=== PATIENT | female | born 1955 | race Caucasian/White ===

== ENCOUNTER 2016-10-09 22:14 | Inpatient (IN) | payer OTHER ==
[~2016-10-09] VITALS: Ht 167.6 cm; Wt 90.0 kg
[~2016-10-09 22:14] MED LIST: BUPR300T49; BUPR300T49 PO; CEFD300C37 PO; DIAZ10TA; DULO60CA7 PO; GABA300C10 PO; GABA600T2 PO; GABA800T2; GABA800T2 PO; GLYB5TAB3; HYDR25SU21 PR; HYDR2TAB13 PO; HYDR50CA; HYDR50CA PO; INSU100C5 SQ-INSULIN; INSU100V13 SQ; INSU100V13 SQ-INSULIN; INSU100V8; INSU100V8 SQ; LISI-167 PO; LISI-170; LOPE2CAP PO; META800T21; METO-394 PO; METR500T PO; OMEP-110 PO; ONDA4TAB13 SL; OXYC15TA75 PO; PANT40TA3; PANT40TA5 PO; Polyethylene Glycol 3350 PO; SUCR1TAB26 PO; TEMA30CA6; TIZA4TAB PO; TIZA4TAB9 PO; TRAM50TA2 PO; TRAZ100T15 PO; VANC1VIA3 PO
[2016-10-09] MEDS ORDERED: PANTOPRAZOLE 80 MG in SODIUM CHLORIDE 0.9% 50 ML IVPB ONE (22:21)
[2016-10-09] MEDS ORDERED: MORPHINE SULFATE 4 MG/ML, 1ML ONE ×2 (22:29→23:17)
[2016-10-09] MEDS ORDERED: ONDANSETRON 2MG/ML, 2ML ONE (22:29)
[2016-10-09] MEDS ORDERED: SODIUM CHLORIDE 0.9% 1,000ML IVBOLUS ONE ×2 (22:30→23:30)
[2016-10-09] MEDS ORDERED: ONDANSETRON 2MG/ML, 2ML IVPush ONE (22:30)
[2016-10-09] MEDS ORDERED: SODIUM CHLORIDE FLUSH 10ML SYR IVF ONE (22:30)
[2016-10-09] MEDS: MORPHINE SULFATE 4 MG/ML, 1ML IVPush PRN ×2 (22:37→23:22)
[2016-10-09 22:54] LABS: ASPARTATE AMINO TRANSFERASE 8 U/L (15-37); BLOOD UREA NITROGEN 30 mg/dL (7-18)
[2016-10-09] MEDS: PANTOPRAZOLE 80 MG in SODIUM CHLORIDE 0.9% 100 ML IV SCH (23:06)
[2016-10-09 23:38] LABS: PH, VENOUS 7.165 pH (7.320-7.420)
[2016-10-10] MEDS ORDERED: SODIUM CHLORIDE 0.9% 1,000ML IVBOLUS ONE (00:30)
[2016-10-10] MEDS ORDERED: OMNIPAQUE 350 MG/ML, 100ML BOTTLE ONE (00:36)
[2016-10-10 01:42] LABS: BLOOD UREA NITROGEN 28 mg/dL (7-18)
[2016-10-10] MEDS ORDERED: PIPERACILLIN/TAZO/PMX 3.375GM 50 ML IV ONE (02:00)
[2016-10-10] MEDS ORDERED: METRONIDAZOLE PMX 500MG/100ML 100 ML IV ONE (02:00)
[2016-10-10] MEDS ORDERED: INSULIN REGULAR 100 UNITS/ML, 3ML VIAL SQ-INSULIN ONE (02:00)
[2016-10-10] MEDS ORDERED: INSULIN REGULAR 100 UNITS/ML, 3ML VIAL ONE (02:17)
[2016-10-10] MEDS ORDERED: SODIUM CHLORIDE FLUSH 10ML SYR IVF PRN (02:30)
[2016-10-10 03:30] VITALS: BP 119/84
[2016-10-10] MEDS ORDERED: POLYETHYLENE GLYCOL 17 GM PACKET PO PRN (03:30)
[2016-10-10] MEDS ORDERED: INSULIN DETEMIR 100 UNITS/ML, PEN SQ-INSULIN SCH (03:30)
[2016-10-10] MEDS ORDERED: LABETALOL 5MG/ML, 20ML IV PRN (03:30)
[2016-10-10] MEDS ORDERED: BISACODYL 10 MG SUPP PR PRN (03:30)
[2016-10-10] MEDS ORDERED: ACETAMINOPHEN 325 MG TABLET PO PRN (03:30)
[2016-10-10] MEDS ORDERED: DOCUSATE 100 MG CAPSULE PO PRN (03:30)
[2016-10-10] MEDS: VANCOMYCIN 50 MG/ML ORAL SUSP PO SCH ×4 (03:34→20:48)
[2016-10-10] MEDS: METRONIDAZOLE PMX 500MG/100ML 100 ML IV SCH ×3 (03:34→20:48)
[2016-10-10] MEDS: ENOXAPARIN 40 MG/0.4 ML SQ SCH ×2 (03:35→03:45)
[2016-10-10] MEDS: PANTOPRAZOLE 80 MG in SODIUM CHLORIDE 0.9% 100 ML IV SCH (04:52)
[2016-10-10] MEDS: INSULIN ASPART 100 UNITS/ML, PEN SQ-INSULIN SCH ×5 (04:52→21:53)
[2016-10-10 06:15] LABS: BLOOD UREA NITROGEN 23 mg/dL (7-18)
[2016-10-10 07:35] VITALS: BP 120/74
[2016-10-10] MEDS: OXYcodone IR 5MG TABLET PO PRN ×2 (08:55→16:31)
[2016-10-10] MEDS: DULOXETINE 30 MG CAPSULE.DR PO SCH (08:55)
[2016-10-10] MEDS: GABAPENTIN 300 MG CAPSULE PO SCH ×2 (08:56→20:47)
[2016-10-10] MEDS: BUPROPION SR 150 MG TABLET PO SCH ×2 (12:00→20:47)
[2016-10-10 13:09] VITALS: BP 127/83
[2016-10-10 16:09] LABS: BLOOD UREA NITROGEN 15 mg/dL (7-18)
[2016-10-10] MEDS: SODIUM CHLORIDE 0.9% 1,000 ML IV SCH (16:30)
[2016-10-10] MEDS: INSULIN DETEMIR 100 UNITS/ML, PEN SQ-INSULIN SCH (16:31)
[2016-10-10 19:30] VITALS: BP 123/82
[2016-10-10] MEDS: TIZANIDINE 4MG TABLET PO SCH (20:47)
[2016-10-10] MEDS ORDERED: TRAZODONE 100MG TABLET PO ONE (21:30)
[2016-10-10] MEDS ORDERED: PANTOPROZOLE 40MG TABLET PO ONE (21:30)
[2016-10-10] MEDS ORDERED: ALUMINUM/MAG/SIMETHICONE 30 ML UDC PO PRN (21:30)
[2016-10-11] VITALS (10 sets, daily range): BP systolic 57–86; BP diastolic 31–53
[2016-10-11] MEDS: SODIUM CHLORIDE 0.9% 1,000 ML IV SCH ×2 (00:10→22:49)
[2016-10-11] MEDS ORDERED: SODIUM CHLORIDE 0.9% 1,000 ML IVBOLUS PRN (01:32)
[2016-10-11] MEDS ORDERED: NALOXONE 0.4 MG/ML, 1ML IVPush ONE (02:00)
[2016-10-11] MEDS: METRONIDAZOLE PMX 500MG/100ML 100 ML IV SCH ×3 (03:04→20:20)
[2016-10-11] MEDS: PANTOPRAZOLE 80 MG in SODIUM CHLORIDE 0.9% 100 ML IV SCH ×3 (03:04→22:50)
[2016-10-11] MEDS: VANCOMYCIN 50 MG/ML ORAL SUSP PO SCH ×4 (04:42→20:21)
[2016-10-11] MEDS: INSULIN DETEMIR 100 UNITS/ML, PEN SQ-INSULIN SCH (05:24)
[2016-10-11] MEDS: INSULIN ASPART 100 UNITS/ML, PEN SQ-INSULIN SCH ×4 (07:00→22:50)
[2016-10-11] MEDS ORDERED: SODIUM CHLORIDE 0.9% 1,000ML IVBOLUS ONE (07:45)
[2016-10-11 07:48] LABS: BLOOD UREA NITROGEN 17 mg/dL (7-18)
[2016-10-11 07:53] LABS: TOTAL IRON BINDING CAPACITY 307 mcg/dL (250-450)
[2016-10-11] MEDS: BUPROPION SR 150 MG TABLET PO SCH ×2 (09:00→20:21)
[2016-10-11] MEDS: GABAPENTIN 300 MG CAPSULE PO SCH ×2 (09:00→20:21)
[2016-10-11] MEDS: DULOXETINE 30 MG CAPSULE.DR PO SCH (09:00)
[2016-10-11] MEDS: OXYcodone IR 5MG TABLET PO PRN ×2 (09:26→15:40)
[2016-10-11] MEDS ORDERED: MIDAZOLAM 1 MG/ML, 5ML ONE (10:22)
[2016-10-11] MEDS ORDERED: FENTANYL PF 100 MCG/2ML ONE (10:22)
[2016-10-11] MEDS ORDERED: NALOXONE 1 MG/ML, 2ML ONE (10:44)
[2016-10-11] MEDS ORDERED: INSULIN ASPART 100 UNITS/ML, PEN SQ-INSULIN SCH (11:00)
[2016-10-11] MEDS ORDERED: EPINEPHRINE SYRINGE 0.1 MG/ML, 10ML ONE (11:50)
[2016-10-11] MEDS ORDERED: SODIUM CHLORIDE 0.9% 1,000 ML IV SCH (14:30)
[2016-10-11] MEDS: SUCRALFATE 1 GM/10 ML UDC PO SCH ×2 (15:39→20:20)
[2016-10-11] MEDS: TIZANIDINE 4MG TABLET PO SCH (20:21)
[2016-10-12] MEDS: METRONIDAZOLE PMX 500MG/100ML 100 ML IV SCH (04:03)
[2016-10-12] MEDS: VANCOMYCIN 50 MG/ML ORAL SUSP PO SCH ×2 (04:03→07:41)
[2016-10-12 04:10] VITALS: BP 94/54
[2016-10-12 04:39] LABS: BLOOD UREA NITROGEN 10 mg/dL (7-18)
[2016-10-12] MEDS: INSULIN ASPART 100 UNITS/ML, PEN SQ-INSULIN SCH ×4 (05:11→23:00)
[2016-10-12] MEDS: SODIUM CHLORIDE 0.9% 1,000 ML IV SCH ×2 (05:57→15:38)
[2016-10-12] MEDS: BUPROPION SR 150 MG TABLET PO SCH ×2 (07:40→22:31)
[2016-10-12] MEDS: SUCRALFATE 1 GM/10 ML UDC PO SCH ×3 (07:40→22:31)
[2016-10-12] MEDS: GABAPENTIN 300 MG CAPSULE PO SCH ×2 (07:41→22:30)
[2016-10-12] MEDS: DULOXETINE 30 MG CAPSULE.DR PO SCH (07:41)
[2016-10-12] MEDS: OXYcodone IR 5MG TABLET PO PRN ×3 (07:42→22:30)
[2016-10-12] MEDS ORDERED: FLUCONAZOLE 40 MG/ML ORAL SUSP PO SCH (09:30)
[2016-10-12] MEDS: PANTOPRAZOLE 80 MG in SODIUM CHLORIDE 0.9% 100 ML IV SCH ×2 (09:56→22:31)
[2016-10-12] MEDS ORDERED: FLUCONAZOLE 10 MG/ML ORAL SUSP PO SCH (10:11)
[2016-10-12 14:29] VITALS: BP 138/84
[2016-10-12 20:00] VITALS: BP 134/73
[2016-10-12] MEDS: TIZANIDINE 4MG TABLET PO SCH (22:31)
[2016-10-12] MEDS: TRAZODONE 100MG TABLET PO PRN (23:20)
[2016-10-13 02:00] VITALS: BP 89/53
[2016-10-13] MEDS: SODIUM CHLORIDE 0.9% 1,000 ML IV SCH ×2 (03:39→14:30)
[2016-10-13 04:13] VITALS: BP 102/65
[2016-10-13] MEDS: INSULIN ASPART 100 UNITS/ML, PEN SQ-INSULIN SCH ×4 (05:15→20:44)
[2016-10-13 06:19] LABS: BLOOD UREA NITROGEN 7 mg/dL (7-18)
[2016-10-13 07:42] VITALS: BP 103/69
[2016-10-13] MEDS: OXYcodone IR 5MG TABLET PO PRN ×3 (08:20→20:40)
[2016-10-13] MEDS: BUPROPION SR 150 MG TABLET PO SCH ×2 (08:21→20:43)
[2016-10-13] MEDS: GABAPENTIN 300 MG CAPSULE PO SCH ×2 (08:21→20:42)
[2016-10-13] MEDS: DULOXETINE 30 MG CAPSULE.DR PO SCH (08:21)
[2016-10-13] MEDS ORDERED: FLUCONAZOLE 200 MG TABLET PO SCH ×2 (09:00)
[2016-10-13] MEDS: SUCRALFATE 1 GM TABLET PO SCH ×3 (09:00→20:41)
[2016-10-13] MEDS ORDERED: SUCRALFATE 1 GM TABLET PO SCH (09:00)
[2016-10-13] MEDS: PANTOPRAZOLE 80 MG in SODIUM CHLORIDE 0.9% 100 ML IV SCH ×2 (09:43→21:47)
[2016-10-13 13:48] VITALS: BP 144/75
[2016-10-13 20:00] VITALS: BP 153/78
[2016-10-13] MEDS: TIZANIDINE 4MG TABLET PO SCH (20:43)
[2016-10-13] MEDS: TRAZODONE 100MG TABLET PO PRN (21:46)
[2016-10-14] VITALS (14 sets, daily range): BP systolic 110–174; BP diastolic 71–98
[2016-10-14] MEDS: OXYcodone IR 5MG TABLET PO PRN ×3 (05:11→19:23)
[2016-10-14 05:25] LABS: BLOOD UREA NITROGEN 6 mg/dL (7-18)
[2016-10-14 07:52] LABS: DIFF TOTAL CELLS COUNTED 100 CELL DIFF
[2016-10-14 07:54] LABS: VERIFY COUNTS? YES
[2016-10-14 07:55] LABS: ANISOCYTOSIS 1+; POLYCHROMASIA 1+
[2016-10-14] MEDS: PANTOPRAZOLE 80 MG in SODIUM CHLORIDE 0.9% 100 ML IV SCH ×2 (08:11→19:23)
[2016-10-14] MEDS: BUPROPION SR 150 MG TABLET PO SCH ×2 (08:12→20:21)
[2016-10-14] MEDS: DULOXETINE 30 MG CAPSULE.DR PO SCH (08:12)
[2016-10-14] MEDS: GABAPENTIN 300 MG CAPSULE PO SCH ×2 (08:12→20:20)
[2016-10-14] MEDS: SUCRALFATE 1 GM TABLET PO SCH ×3 (08:12→20:20)
[2016-10-14] MEDS: INSULIN ASPART 100 UNITS/ML, PEN SQ-INSULIN SCH ×4 (08:13→20:20)
[2016-10-14] MEDS ORDERED: POTASSIUM CHLORIDE 20 MEQ TAB.ER.PRT PO ONE (14:30)
[2016-10-14] MEDS ORDERED: MAALOX/HYOSCYAMINE/LIDOCAINE 45 ML BOTTLE PO ONE (16:30)
[2016-10-14] MEDS ORDERED: MAALOX/HYOSCYAMINE/LIDOCAINE 45 ML BOTTLE PO PRN (17:00)
[2016-10-14] MEDS: TRAZODONE 100MG TABLET PO PRN (20:20)
[2016-10-14] MEDS: TIZANIDINE 4MG TABLET PO SCH (20:21)
[2016-10-15 01:48] VITALS: BP 125/80
[2016-10-15] MEDS: OXYcodone IR 5MG TABLET PO PRN ×4 (04:31→23:54)
[2016-10-15] MEDS: PANTOPRAZOLE 80 MG in SODIUM CHLORIDE 0.9% 100 ML IV SCH ×2 (05:05→17:08)
[2016-10-15 05:31] LABS: BLOOD UREA NITROGEN 7 mg/dL (7-18)
[2016-10-15 07:01] VITALS: BP 136/73
[2016-10-15] MEDS: GABAPENTIN 300 MG CAPSULE PO SCH ×2 (08:26→20:10)
[2016-10-15] MEDS: SUCRALFATE 1 GM TABLET PO SCH ×3 (08:26→20:09)
[2016-10-15] MEDS: DULOXETINE 30 MG CAPSULE.DR PO SCH (08:27)
[2016-10-15] MEDS: BUPROPION SR 150 MG TABLET PO SCH ×2 (08:27→20:10)
[2016-10-15] MEDS: INSULIN ASPART 100 UNITS/ML, PEN SQ-INSULIN SCH ×4 (09:56→20:11)
[2016-10-15 13:43] VITALS: BP 163/91
[2016-10-15 18:55] VITALS: BP 165/90
[2016-10-15] MEDS: TIZANIDINE 4MG TABLET PO SCH (20:09)
[2016-10-15] MEDS: TRAZODONE 100MG TABLET PO PRN (20:10)
[2016-10-16 01:38] VITALS: BP 119/76
[2016-10-16] MEDS: PANTOPRAZOLE 80 MG in SODIUM CHLORIDE 0.9% 100 ML IV SCH (03:32)
[2016-10-16 06:05] LABS: BLOOD UREA NITROGEN 8 mg/dL (7-18)
[2016-10-16] MEDS: INSULIN ASPART 100 UNITS/ML, PEN SQ-INSULIN SCH ×7 (07:00→20:29)
[2016-10-16 07:43] VITALS: BP 156/92
[2016-10-16] MEDS ORDERED: PROPOFOL 10 MG/ML, 20ML ONE (08:01)
[2016-10-16] MEDS ORDERED: FENTANYL PF 100 MCG/2ML ONE (08:49)
[2016-10-16] MEDS ORDERED: OXYcodone 5 MG/5 ML ORAL.SOL UDC ONE (08:50)
[2016-10-16] MEDS: FENTANYL PF 100 MCG/2ML IV PRN ×2 (08:51→08:59)
[2016-10-16] MEDS ORDERED: OXYcodone 5 MG/5 ML ORAL.SOL UDC PO PRN (09:00)
[2016-10-16] MEDS: DULOXETINE 30 MG CAPSULE.DR PO SCH (10:11)
[2016-10-16] MEDS: SUCRALFATE 1 GM TABLET PO SCH ×4 (10:11→20:31)
[2016-10-16] MEDS: PANTOPROZOLE 40MG TABLET PO SCH ×2 (10:11→20:30)
[2016-10-16] MEDS: BUPROPION SR 150 MG TABLET PO SCH ×2 (10:11→20:30)
[2016-10-16] MEDS: GABAPENTIN 300 MG CAPSULE PO SCH ×2 (10:11→20:30)
[2016-10-16] MEDS: OXYcodone IR 5MG TABLET PO PRN ×2 (11:09→17:20)
[2016-10-16 13:39] VITALS: BP 165/89
[2016-10-16 18:41] VITALS: BP 157/87
[2016-10-16] MEDS: TIZANIDINE 4MG TABLET PO SCH (20:31)
[2016-10-16] MEDS ORDERED: TRAZODONE 100MG TABLET PO SCH (21:00)
[2016-10-17 00:43] VITALS: BP 107/68
[2016-10-17] MEDS: OXYcodone IR 5MG TABLET PO PRN ×3 (01:19→13:22)
[2016-10-17 06:04] LABS: BLOOD UREA NITROGEN 6 mg/dL (7-18)
[2016-10-17 06:57] VITALS: BP 112/68
[2016-10-17 07:35] VITALS: BP 151/82
[2016-10-17] MEDS: SUCRALFATE 1 GM TABLET PO SCH ×2 (07:36→13:22)
[2016-10-17] MEDS ORDERED: MAGNESIUM SULFATE PMX 2GM/50ML 50 ML IV ONE (08:30)
[2016-10-17] MEDS: PANTOPROZOLE 40MG TABLET PO SCH (09:00)
[2016-10-17] MEDS: GABAPENTIN 300 MG CAPSULE PO SCH (09:03)
[2016-10-17] MEDS: DULOXETINE 30 MG CAPSULE.DR PO SCH (09:03)
[2016-10-17] MEDS: BUPROPION SR 150 MG TABLET PO SCH (09:04)
[2016-10-17] MEDS: INSULIN ASPART 100 UNITS/ML, PEN SQ-INSULIN SCH ×2 (09:05→13:23)
[2016-10-17] MEDS ORDERED: SUCR1TAB26 PO (12:32)
[2016-10-17 14:12] VITALS: BP 149/80
== END 2016-10-17 16:30 | disposition home or self-care (01) | DRG 377 ==
LOC: ED 23:04 → EDIP 10-10 02:02 → 4WST 10-10 03:14 → CCU 10-11 07:04 → 4WST 10-12 14:08
PROVIDERS: ADMIT Internal Medicine
PROC: 30233N1 Transfusion of Nonautologous Red Blood Cells into Peripheral Vein, Percutaneous Approach (ICD-10-PCS; principal; 2016-10-10)
PROC: 0DB98ZX Excision of Duodenum, Via Natural or Artificial Opening Endoscopic, Diagnostic (ICD-10-PCS; 2016-10-11)
PROC: 0DB58ZX Excision of Esophagus, Via Natural or Artificial Opening Endoscopic, Diagnostic (ICD-10-PCS; 2016-10-11)
PROC: 3E0G8GC Introduction of Other Therapeutic Substance into Upper GI, Via Natural or Artificial Opening Endoscopic (ICD-10-PCS; 2016-10-11)
PROC: 0W3P8ZZ Control Bleeding in Gastrointestinal Tract, Via Natural or Artificial Opening Endoscopic (ICD-10-PCS; 2016-10-11)
PROC: 0DB58ZX Excision of Esophagus, Via Natural or Artificial Opening Endoscopic, Diagnostic (ICD-10-PCS; 2016-10-16)
DX: K26.4 Chronic or unspecified duodenal ulcer with hemorrhage (principal); A41.9 Sepsis, unspecified organism; E13.10 Other specified diabetes mellitus with ketoacidosis without coma; F11.20 Opioid dependence, uncomplicated; A04.7 Enterocolitis due to Clostridium difficile; D62 Acute posthemorrhagic anemia; K22.10 Ulcer of esophagus without bleeding; E88.09 Other disorders of plasma-protein metabolism, not elsewhere classified; R19.7 Diarrhea, unspecified; E86.0 Dehydration; E87.6 Hypokalemia; F41.9 Anxiety disorder, unspecified; G47.33 Obstructive sleep apnea (adult) (pediatric); G89.29 Other chronic pain; I10 Essential (primary) hypertension; J44.9 Chronic obstructive pulmonary disease, unspecified; K21.0 Gastro-esophageal reflux disease with esophagitis; K29.80 Duodenitis without bleeding; K31.84 Gastroparesis; Z82.49 Family history of ischemic heart disease and other diseases of the circulatory system; Z86.14 Personal history of Methicillin resistant Staphylococcus aureus infection; Z86.19 Personal history of other infectious and parasitic diseases; Z87.11 Personal history of peptic ulcer disease; Z87.891 Personal history of nicotine dependence; Z90.710 Acquired absence of both cervix and uterus; Z91.19 Patient's noncompliance with other medical treatment and regimen; Z90.89 Acquired absence of other organs; Z88.8 Allergy status to other drugs, medicaments and biological substances
CPT/HCPCS: 36415; 74177; 80048; 80053; 81003; 82010; 82040; 82728; 82803; 82941; 82962; 83540; 83550; 83605; 83735; 84145; 85014; 85018; 85025; 85610; 85730; 86850; 86900; 86923; 87046; 87081; 87324; 87493; 87798; 87899; 88305; 88312; 89055; 96361; 96365; 96372; 96375; 96376; J1650; J1815; J2250; J2310; J2405; J2543; J2704; J3010; J3370; Q9967; C9113; J3475; J7030; P9016

== ENCOUNTER 2017-07-10 15:39 | Emergency (ER) | payer OTHER ==
[~2017-07-10] VITALS: Ht 167.6 cm; Wt 79.0 kg
[~2017-07-10 15:39] MED LIST changes: -HYDR2TAB13 PO; +HYDR2TAB29 PO; +META-23; -META800T21; -METO-394 PO; +METO-429 PO; -SUCR1TAB26 PO; +SUCR1TAB33 PO
[2017-07-10] MEDS ORDERED: SODIUM CHLORIDE 0.9% 1,000ML IVBOLUS ONE (16:00)
[2017-07-10] MEDS ORDERED: SODIUM CHLORIDE FLUSH 10ML SYR IVF ONE (16:00)
[2017-07-10 16:04] LABS: MEAN CORPUSCULAR HEMOGLOBIN 25.4 pg (27.0-34.8); MEAN CORPUSCULAR HGB CONC 32.6 g/dL (32.4-35.8); MEAN PLATELET VOLUME 8.8 fL (7.4-10.4); PLATELET COUNT 487 x10^3/uL (130-400); RED BLOOD COUNT 4.96 x10^6/uL (3.82-5.3)
[2017-07-10 16:16] LABS: ALANINE AMINOTRANSFERASE 16 U/L (12-78); ALBUMIN 3.2 g/dL (3.4-5.0); ANION GAP 13 mmol/L (5-15); CALCIUM 8.7 mg/dL (8.5-10.1); CHLORIDE 99 mmol/L (98-107); CREATININE 1.13 mg/dL (0.55-1.02)
[2017-07-10 16:18] LABS: ALKALINE PHOSPHATASE 78 U/L (45-117); BILIRUBIN,TOTAL 0.5 mg/dL (0.2-1.0); TOTAL PROTEIN 7.4 g/dL (6.4-8.2)
[2017-07-10 16:33] LABS: TROPONIN I < 0.015 ng/mL (0.000-0.045)
[2017-07-10] MEDS ORDERED: MORPHINE SULFATE 4 MG/ML, 1ML ONE ×2 (16:37→16:54)
[2017-07-10] MEDS: MORPHINE SULFATE 4 MG/ML, 1ML IVPush PRN ×2 (16:40→16:58)
[2017-07-10 16:46] LABS: MD YES
[2017-07-10 16:48] LABS: BAND#(MANUAL) 0.26 x10^3/uL; BANDS%(MANUAL) 1 % (0-7); LYMPH#(MANUAL) 5.22 x10^3/uL (1-3.4); LYMPHS% (MANUAL) 20 % (22-44); MONOS#(MANUAL) 1.83 x10^3/uL (0.3-2.7); MONOS% (MANUAL) 7 % (2-9); REACTIVE LYMPHS # (MANUAL) 0.26 x10^3/uL (0-0); REACTIVE LYMPHS % (MANUAL) 1 % (0-0); SEG#(MANUAL) 18.53 x10^3/uL (1.8-6.8); SEGS% (MANUAL) 71 % (42-75)
[2017-07-10 16:49] LABS: ANISOCYTOSIS 2+; MICROCYTOSIS 1+; POLYCHROMASIA 1+
[2017-07-10 16:50] LABS: <PLATELET ESTIMATE> INCREASED; <PLT MORPHOLOGY> NORMAL PLT MORPH
[2017-07-10] MEDS ORDERED: OMNIPAQUE 350 MG/ML, 100ML BOTTLE ONE (17:38)
[2017-07-10] MEDS ORDERED: ONDANSETRON 2MG/ML, 2ML IVPush ONE (18:00)
[2017-07-10] MEDS ORDERED: ONDANSETRON 2MG/ML, 2ML ONE (18:06)
[2017-07-10 18:19] LABS: ACETONE, SERUM Negative (Negative)
[2017-07-10] MEDS ORDERED: DICYCLOMINE 10 MG/ML, 2ML IM ONE (18:30)
[2017-07-10 19:02] LABS: MICROSCOPIC NOT IND
[2017-07-10] MEDS ORDERED: DICYCLOMINE 10 MG/ML, 2ML ONE (19:06)
[2017-07-10 19:20] LABS: CULTURE INDICATED? NO
[2017-07-10 20:35] VITALS: BP 121/74
== END 2017-07-10 20:37 | disposition home or self-care (01) ==
LOC: ED 18:15
DX: E11.43 Type 2 diabetes mellitus with diabetic autonomic (poly)neuropathy (principal); K31.84 Gastroparesis; J44.9 Chronic obstructive pulmonary disease, unspecified; I10 Essential (primary) hypertension; K21.9 Gastro-esophageal reflux disease without esophagitis
CPT/HCPCS: 36415; 74022; 74177; 80053; 81003; 82010; 83690; 84484; 85025; 93005; 96372; 96374; 96375; 99285; J0500; J2405; J7030; Q9967

== ENCOUNTER 2017-07-13 17:35 | Inpatient (IN) | payer OTHER ==
[~2017-07-13] VITALS: Ht 167.6 cm; Wt 81.8 kg
[2017-07-13] MEDS ORDERED: SODIUM CHLORIDE FLUSH 10ML SYR IVF ONE (18:00)
[2017-07-13 19:07] LABS: BASOPHILS # (AUTO) 0.05 x10^3/uL (0-0.1); BASOPHILS % (AUTO) 0 % (0-1); EOSINOPHILS # (AUTO) 0.05 x10^3/uL (0-0.4); EOSINOPHILS % (AUTO) 0 % (1-7); LYMPHOCYTES # (AUTO) 3.56 x10^3/uL (1-3.4); LYMPHOCYTES % (AUTO) 21 % (22-44); MD NO; MEAN CORPUSCULAR HEMOGLOBIN 25.8 pg (27.0-34.8); MEAN CORPUSCULAR HGB CONC 32.5 g/dL (32.4-35.8); MEAN CORPUSCULAR VOLUME 79.3 fL (80-100); MEAN PLATELET VOLUME 8.7 fL (7.4-10.4); MONOCYTES # (AUTO) 0.95 x10^3/uL (0.2-0.8); MONOCYTES % (AUTO) 6 % (2-9); NEUTROPHILS % (AUTO) 74 % (42-75); PLATELET COUNT 330 x10^3/uL (130-400); RED BLOOD COUNT 4.11 x10^6/uL (3.82-5.3); RED CELL DISTRIBUTION WIDTH 18.5 % (9.6-15.2)
[2017-07-13 19:11] LABS: ALANINE AMINOTRANSFERASE 17 U/L (12-78); ALBUMIN 3.1 g/dL (3.4-5.0); ANION GAP 9 mmol/L (5-15); CALCIUM 8.5 mg/dL (8.5-10.1); CHLORIDE 96 mmol/L (98-107); CREATININE 0.77 mg/dL (0.55-1.02)
[2017-07-13 19:13] LABS: ALKALINE PHOSPHATASE 78 U/L (45-117); BILIRUBIN,TOTAL 0.5 mg/dL (0.2-1.0)
[2017-07-13] MEDS ORDERED: SODIUM CHLORIDE 0.9% 1,000ML IVBOLUS ONE (19:30)
[2017-07-13] MEDS ORDERED: ZIPRASIDONE 20 MG INJ IM ONE ×2 (19:30)
[2017-07-13] MEDS ORDERED: METOCLOPRAMIDE 5 MG/ML, 2ML IVPush ONE (19:30)
[2017-07-13] MEDS ORDERED: METOCLOPRAMIDE 5 MG/ML, 2ML ONE (19:31)
[2017-07-13 19:56] LABS: CULTURE INDICATED? YES; MICROSCOPIC INDICATED
[2017-07-13] MEDS ORDERED: SODIUM CHLORIDE 0.9% 1,000 ML IV ONE (21:22)
[2017-07-13] MEDS ORDERED: CEFTRIAXONE PMX 1GM/50ML 50 ML IV ONE (21:30)
[2017-07-13] MEDS ORDERED: SODIUM CHLORIDE FLUSH 10ML SYR IVF PRN (21:30)
[2017-07-13] MEDS ORDERED: NS + 40MEQ KCL 1,000 ML IV SCH (21:30)
[2017-07-13 21:33] LABS: CULTURE INDICATED? YES; MICROSCOPIC INDICATED
[2017-07-13] MEDS ORDERED: CEFTRIAXONE PMX 1GM/50ML 50 ML ONE (21:50)
[2017-07-13] MEDS ORDERED: ACETAMINOPHEN 325 MG TABLET PO PRN (22:00)
[2017-07-13] MEDS ORDERED: INSULIN GLARGINE 100 UNITS/ML, PEN SQ-INSULIN SCH (22:00)
[2017-07-13] MEDS ORDERED: TEMPLATE NON-FORMULARY MED. (Bupropion Hcl** (Wellbutrin Xl**) 300 MG) PO SCH (22:00)
[2017-07-13] MEDS ORDERED: hydrALAzine 20 MG/ML, 1ML IVPush PRN (22:00)
[2017-07-13] MEDS: ENOXAPARIN 40 MG/0.4 ML SQ SCH (22:00)
[2017-07-13 22:45] VITALS: BP 113/69
[2017-07-13 23:39] VITALS: BP 122/78
[2017-07-14] MEDS: SODIUM CHLORIDE 0.9% 1,000 ML IV SCH ×5 (00:08→22:40)
[2017-07-14] MEDS: TRAZODONE 100MG TABLET PO SCH ×2 (00:16→21:47)
[2017-07-14] MEDS: METOCLOPRAMIDE 5 MG/ML, 2ML IVPush SCH ×4 (00:17→17:50)
[2017-07-14] MEDS: ENOXAPARIN 40 MG/0.4 ML SQ SCH ×2 (00:18→21:49)
[2017-07-14] MEDS ORDERED: BUPROPION 300 MG MC SCH (02:30)
[2017-07-14 02:43] VITALS: BP 108/61
[2017-07-14 05:53] LABS: CHLORIDE 105 mmol/L (98-107)
[2017-07-14] MEDS: morphine SULFATE 10 MG/ML, 1ML IVPush PRN ×5 (05:53→21:47)
[2017-07-14 06:13] LABS: ANION GAP 9 mmol/L (5-15); BASOPHILS # (AUTO) 0.04 x10^3/uL (0-0.1); BASOPHILS % (AUTO) 0 % (0-1); CALCIUM 7.7 mg/dL (8.5-10.1); CREATININE 0.58 mg/dL (0.55-1.02); EOSINOPHILS # (AUTO) 0.07 x10^3/uL (0-0.4); EOSINOPHILS % (AUTO) 1 % (1-7); LYMPHOCYTES # (AUTO) 3.07 x10^3/uL (1-3.4); LYMPHOCYTES % (AUTO) 25 % (22-44); MD NO; MEAN CORPUSCULAR HEMOGLOBIN 26.2 pg (27.0-34.8); MEAN CORPUSCULAR HGB CONC 33.1 g/dL (32.4-35.8); MEAN CORPUSCULAR VOLUME 79.2 fL (80-100); MEAN PLATELET VOLUME 8.6 fL (7.4-10.4); MONOCYTES # (AUTO) 0.65 x10^3/uL (0.2-0.8); MONOCYTES % (AUTO) 5 % (2-9); NEUTROPHILS # (AUTO) 8.31 x10^3/uL (1.8-6.8); NEUTROPHILS % (AUTO) 69 % (42-75); PLATELET COUNT 231 x10^3/uL (130-400); RED BLOOD COUNT 3.25 x10^6/uL (3.82-5.3); RED CELL DISTRIBUTION WIDTH 18.6 % (9.6-15.2)
[2017-07-14 07:07] VITALS: BP 117/70
[2017-07-14] MEDS: INSULIN LISPRO 100 UNITS/ML, PEN SQ-INSULIN SCH ×4 (08:03→21:48)
[2017-07-14] MEDS: LACTULOSE 10 GM/15 ML UDC PO SCH ×2 (08:05→20:47)
[2017-07-14] MEDS: INSULIN GLARGINE 100 UNITS/ML, PEN SQ-INSULIN SCH ×2 (09:50→21:49)
[2017-07-14] MEDS: GABAPENTIN 300 MG CAPSULE PO SCH ×2 (09:50→20:46)
[2017-07-14] MEDS ORDERED: POTASSIUM CHLORIDE 40 MEQ in SODIUM CHLORIDE 0.9% 500 ML IV ONE (12:00)
[2017-07-14 12:41] VITALS: BP 108/56
[2017-07-14] MEDS: POTASSIUM CHLORIDE 40 MEQ in SODIUM CHLORIDE 0.9% 500 ML IV SCH ×2 (13:44→18:36)
[2017-07-14 15:24] LABS: OCCULT BLOOD POSITIVE (NEGATIVE)
[2017-07-14 15:50] LABS: CLOSTRIDIUM DIFFICILE ANTIGEN POSITIVE; CLOSTRIDIUM DIFFICILE TOXIN NEGATIVE (Negative)
[2017-07-14] MEDS ORDERED: metroNIDAZOLE 250 MG TABLET PO SCH (16:00)
[2017-07-14] MEDS: metroNIDAZOLE 500 MG TABLET PO SCH ×2 (16:29→20:47)
[2017-07-14 20:10] VITALS: BP 115/59
[2017-07-14] MEDS: TIZANIDINE 4MG TABLET PO SCH (20:46)
[2017-07-14] MEDS: BUPROPION SR 150 MG TABLET PO SCH (22:24)
[2017-07-15] MEDS: METOCLOPRAMIDE 5 MG/ML, 2ML IVPush SCH ×5 (00:40→23:46)
[2017-07-15] MEDS: morphine SULFATE 10 MG/ML, 1ML IVPush PRN ×7 (00:51→22:16)
[2017-07-15 03:20] VITALS: BP_SYST 145; BP_SYST 92; BP_DIAS 51; BP_DIAS 95
[2017-07-15] MEDS: SODIUM CHLORIDE 0.9% 1,000 ML IV SCH (04:48)
[2017-07-15 05:23] LABS: ALBUMIN 2.7 g/dL (3.4-5.0); ANION GAP 10 mmol/L (5-15); CALCIUM 7.9 mg/dL (8.5-10.1); CHLORIDE 105 mmol/L (98-107); CREATININE 0.74 mg/dL (0.55-1.02)
[2017-07-15 07:33] VITALS: BP 96/52
[2017-07-15] MEDS: INSULIN GLARGINE 100 UNITS/ML, PEN SQ-INSULIN SCH (08:34)
[2017-07-15] MEDS: LACTULOSE 10 GM/15 ML UDC PO SCH ×2 (08:35→21:00)
[2017-07-15] MEDS: metroNIDAZOLE 500 MG TABLET PO SCH ×3 (08:35→21:05)
[2017-07-15] MEDS: GABAPENTIN 300 MG CAPSULE PO SCH ×2 (08:35→21:05)
[2017-07-15] MEDS: INSULIN LISPRO 100 UNITS/ML, PEN SQ-INSULIN SCH ×4 (08:35→21:00)
[2017-07-15] MEDS: BUPROPION SR 150 MG TABLET PO SCH ×2 (08:35→21:03)
[2017-07-15] MEDS ORDERED: POTASSIUM CHLORIDE 40 MEQ in SODIUM CHLORIDE 0.9% 500 ML IV ONE (09:30)
[2017-07-15] MEDS ORDERED: MAGNESIUM SULFATE PMX 2GM/50ML 50 ML IV ONE (09:30)
[2017-07-15] MEDS ORDERED: INSULIN GLARGINE 100 UNITS/ML, PEN SQ-INSULIN ONE (11:30)
[2017-07-15 12:05] LABS: HEMOGLOBIN A1C 9.2 % (4.2-6.3)
[2017-07-15 13:29] VITALS: BP 119/62
[2017-07-15 20:37] VITALS: BP 125/66
[2017-07-15] MEDS ORDERED: INSULIN GLARGINE 100 UNITS/ML, PEN SQ-INSULIN SCH ×2 (21:00)
[2017-07-15] MEDS: TIZANIDINE 4MG TABLET PO SCH (21:04)
[2017-07-15] MEDS: TRAZODONE 100MG TABLET PO SCH (21:05)
[2017-07-15] MEDS: ENOXAPARIN 40 MG/0.4 ML SQ SCH (21:05)
[2017-07-16] MEDS: morphine SULFATE 10 MG/ML, 1ML IVPush PRN ×3 (02:58→09:32)
[2017-07-16 03:00] VITALS: BP 108/60
[2017-07-16 05:14] LABS: ANION GAP 5 mmol/L (5-15); CHLORIDE 104 mmol/L (98-107)
[2017-07-16 05:15] LABS: CREATININE 0.68 mg/dL (0.55-1.02)
[2017-07-16] MEDS: METOCLOPRAMIDE 5 MG/ML, 2ML IVPush SCH ×3 (06:08→18:23)
[2017-07-16] MEDS: INSULIN LISPRO 100 UNITS/ML, PEN SQ-INSULIN SCH ×4 (07:30→21:02)
[2017-07-16 07:40] VITALS: BP 106/56
[2017-07-16] MEDS: LACTULOSE 10 GM/15 ML UDC PO SCH ×2 (09:00→21:00)
[2017-07-16] MEDS: metroNIDAZOLE 500 MG TABLET PO SCH ×3 (09:26→22:45)
[2017-07-16] MEDS: GABAPENTIN 300 MG CAPSULE PO SCH ×3 (09:27→22:44)
[2017-07-16] MEDS: BUPROPION SR 150 MG TABLET PO SCH ×2 (09:27→22:44)
[2017-07-16] MEDS ORDERED: morphine SULFATE ORAL.CONC 20 MG/ML HOMEMEDPO PRN (13:00)
[2017-07-16 13:10] VITALS: BP 115/63
[2017-07-16] MEDS: morphine SULFATE 15 MG TAB.IR HOMEMEDPO PRN ×3 (14:38→22:44)
[2017-07-16 20:56] VITALS: BP 145/79
[2017-07-16] MEDS: ONDANSETRON 2MG/ML, 2ML IVPush PRN (21:01)
[2017-07-16] MEDS: INSULIN GLARGINE 100 UNITS/ML, PEN SQ-INSULIN SCH (21:01)
[2017-07-16] MEDS: ENOXAPARIN 40 MG/0.4 ML SQ SCH (22:00)
[2017-07-16] MEDS: TIZANIDINE 4MG TABLET PO SCH (22:45)
[2017-07-16] MEDS: TRAZODONE 100MG TABLET PO SCH (22:45)
[2017-07-17] MEDS: METOCLOPRAMIDE 5 MG/ML, 2ML IVPush SCH ×5 (00:08→22:30)
[2017-07-17] MEDS: morphine SULFATE 15 MG TAB.IR HOMEMEDPO PRN ×2 (02:53→07:06)
[2017-07-17 04:56] VITALS: BP 91/54
[2017-07-17] MEDS: ONDANSETRON 2MG/ML, 2ML IVPush PRN ×2 (05:00→15:06)
[2017-07-17 05:24] LABS: CHLORIDE 103 mmol/L (98-107)
[2017-07-17 05:30] LABS: ALANINE AMINOTRANSFERASE 17 U/L (12-78); ALBUMIN 2.6 g/dL (3.4-5.0); ALKALINE PHOSPHATASE 54 U/L (45-117); ANION GAP 7 mmol/L (5-15); BILIRUBIN,TOTAL 0.3 mg/dL (0.2-1.0); CALCIUM 8.1 mg/dL (8.5-10.1); CREATININE 0.61 mg/dL (0.55-1.02); TOTAL PROTEIN 5.8 g/dL (6.4-8.2)
[2017-07-17 05:34] LABS: BASOPHILS # (AUTO) 0.04 x10^3/uL (0-0.1); BASOPHILS % (AUTO) 0 % (0-1); EOSINOPHILS # (AUTO) 0.22 x10^3/uL (0-0.4); EOSINOPHILS % (AUTO) 2 % (1-7); LYMPHOCYTES # (AUTO) 3.04 x10^3/uL (1-3.4); LYMPHOCYTES % (AUTO) 24 % (22-44); MD NO; MEAN CORPUSCULAR HEMOGLOBIN 25.5 pg (27.0-34.8); MEAN CORPUSCULAR HGB CONC 32.4 g/dL (32.4-35.8); MEAN CORPUSCULAR VOLUME 78.8 fL (80-100); MONOCYTES # (AUTO) 0.95 x10^3/uL (0.2-0.8); MONOCYTES % (AUTO) 8 % (2-9); NEUTROPHILS # (AUTO) 8.36 x10^3/uL (1.8-6.8); NEUTROPHILS % (AUTO) 66 % (42-75); PLATELET COUNT 280 x10^3/uL (130-400); RED BLOOD COUNT 3.23 x10^6/uL (3.82-5.3); RED CELL DISTRIBUTION WIDTH 18.2 % (9.6-15.2)
[2017-07-17 06:59] VITALS: BP 92/57
[2017-07-17] MEDS: INSULIN LISPRO 100 UNITS/ML, PEN SQ-INSULIN SCH ×5 (07:00→21:47)
[2017-07-17] MEDS ORDERED: INSU100V13 SQ-INSULIN (08:10)
[2017-07-17] MEDS ORDERED: ONDA4TAB13 SL (08:10)
[2017-07-17] MEDS: LACTULOSE 10 GM/15 ML UDC PO SCH ×2 (09:00→20:37)
[2017-07-17] MEDS: metroNIDAZOLE 500 MG TABLET PO SCH ×3 (09:36→21:00)
[2017-07-17] MEDS: BUPROPION SR 150 MG TABLET PO SCH ×2 (09:36→22:30)
[2017-07-17] MEDS: GABAPENTIN 300 MG CAPSULE PO SCH ×2 (09:36→20:52)
[2017-07-17] MEDS: INSULIN GLARGINE 100 UNITS/ML, PEN SQ-INSULIN SCH ×2 (09:36→21:47)
[2017-07-17] MEDS: morphine SULFATE 15 MG TAB.IR PO PRN ×3 (11:19→21:45)
[2017-07-17 14:45] VITALS: BP 109/64
[2017-07-17] MEDS ORDERED: OMNIPAQUE 350 MG/ML, 100ML BOTTLE ONE (17:18)
[2017-07-17 19:55] VITALS: BP 130/81
[2017-07-17] MEDS: ENOXAPARIN 40 MG/0.4 ML SQ SCH (20:38)
[2017-07-17] MEDS: TRAZODONE 100MG TABLET PO SCH (20:52)
[2017-07-17] MEDS: TIZANIDINE 4MG TABLET PO SCH (20:52)
[2017-07-18 01:48] VITALS: BP 95/91
[2017-07-18] MEDS: morphine SULFATE 15 MG TAB.IR PO PRN ×3 (01:52→10:34)
[2017-07-18] MEDS: ONDANSETRON 2MG/ML, 2ML IVPush PRN ×2 (04:31→10:40)
[2017-07-18] MEDS: METOCLOPRAMIDE 5 MG/ML, 2ML IVPush SCH ×3 (06:06→18:02)
[2017-07-18] MEDS: INSULIN LISPRO 100 UNITS/ML, PEN SQ-INSULIN SCH ×4 (07:00→21:29)
[2017-07-18 07:21] VITALS: BP 104/70
[2017-07-18] MEDS ORDERED: MAGNESIUM SULFATE PMX 2GM/50ML 50 ML IV ONE (08:00)
[2017-07-18] MEDS: SUCRALFATE 1 GM/10 ML UDC PO SCH ×4 (08:22→21:26)
[2017-07-18] MEDS: metroNIDAZOLE 500 MG TABLET PO SCH (09:00)
[2017-07-18] MEDS: LACTULOSE 10 GM/15 ML UDC PO SCH ×2 (10:34→21:00)
[2017-07-18] MEDS: BUPROPION SR 150 MG TABLET PO SCH ×2 (10:34→21:26)
[2017-07-18] MEDS: GABAPENTIN 300 MG CAPSULE PO SCH ×2 (10:34→21:26)
[2017-07-18] MEDS: OMEPRAZOLE 20 MG CAPSULE.DR PO SCH ×2 (10:35→21:26)
[2017-07-18] MEDS: INSULIN GLARGINE 100 UNITS/ML, PEN SQ-INSULIN SCH ×2 (10:36→21:27)
[2017-07-18] MEDS: MORPHINE SULFATE 4 MG/ML, 1ML IVPush PRN ×2 (14:14→19:07)
[2017-07-18 14:39] VITALS: BP 116/74
[2017-07-18 19:36] VITALS: BP 122/76
[2017-07-18] MEDS: ENOXAPARIN 40 MG/0.4 ML SQ SCH (21:10)
[2017-07-18] MEDS: TIZANIDINE 4MG TABLET PO SCH (21:26)
[2017-07-18] MEDS: TRAZODONE 100MG TABLET PO SCH (21:27)
[2017-07-19 01:22] VITALS: BP 97/61
[2017-07-19] MEDS: MORPHINE SULFATE 4 MG/ML, 1ML IVPush PRN ×5 (03:43→21:01)
[2017-07-19] MEDS: METOCLOPRAMIDE 5 MG/ML, 2ML IVPush SCH ×4 (03:44→23:38)
[2017-07-19] MEDS: SUCRALFATE 1 GM/10 ML UDC PO SCH ×5 (04:07→21:00)
[2017-07-19 05:04] LABS: BASOPHILS # (AUTO) 0.03 x10^3/uL (0-0.1); BASOPHILS % (AUTO) 0 % (0-1); EOSINOPHILS # (AUTO) 0.13 x10^3/uL (0-0.4); EOSINOPHILS % (AUTO) 1 % (1-7); LYMPHOCYTES # (AUTO) 2.05 x10^3/uL (1-3.4); LYMPHOCYTES % (AUTO) 21 % (22-44); MD NO; MEAN CORPUSCULAR HEMOGLOBIN 25.4 pg (27.0-34.8); MEAN CORPUSCULAR HGB CONC 32.4 g/dL (32.4-35.8); MEAN CORPUSCULAR VOLUME 78.4 fL (80-100); MEAN PLATELET VOLUME 8.6 fL (7.4-10.4); MONOCYTES # (AUTO) 0.87 x10^3/uL (0.2-0.8); MONOCYTES % (AUTO) 9 % (2-9); NEUTROPHILS # (AUTO) 6.52 x10^3/uL (1.8-6.8); NEUTROPHILS % (AUTO) 68 % (42-75); PLATELET COUNT 259 x10^3/uL (130-400); RED BLOOD COUNT 3.22 x10^6/uL (3.82-5.3); RED CELL DISTRIBUTION WIDTH 18.3 % (9.6-15.2)
[2017-07-19 05:13] LABS: ANION GAP 9 mmol/L (5-15); CALCIUM 7.8 mg/dL (8.5-10.1); CHLORIDE 104 mmol/L (98-107); CREATININE 0.59 mg/dL (0.55-1.02)
[2017-07-19] MEDS: INSULIN LISPRO 100 UNITS/ML, PEN SQ-INSULIN SCH ×4 (07:00→21:00)
[2017-07-19 07:40] VITALS: BP 101/64
[2017-07-19 07:59] LABS: % IRON SATURATION 5 % (20-55); IRON LEVEL 15 mcg/dL (50-170); TOTAL IRON BINDING CAPACITY 320 mcg/dL (250-450)
[2017-07-19] MEDS: INSULIN GLARGINE 100 UNITS/ML, PEN SQ-INSULIN SCH ×3 (08:46→11:59)
[2017-07-19] MEDS: GABAPENTIN 300 MG CAPSULE PO SCH ×2 (09:00→20:59)
[2017-07-19] MEDS: BUPROPION SR 150 MG TABLET PO SCH ×2 (09:00→20:59)
[2017-07-19] MEDS: LACTULOSE 10 GM/15 ML UDC PO SCH ×2 (09:00→21:00)
[2017-07-19] MEDS ORDERED: metroNIDAZOLE 500 MG TABLET PO SCH (09:00)
[2017-07-19] MEDS: OMEPRAZOLE 20 MG CAPSULE.DR PO SCH ×2 (09:00→20:59)
[2017-07-19] MEDS: FLUCONAZOLE 100 MG TABLET PO SCH (09:21)
[2017-07-19] MEDS ORDERED: MOVIPREP POWDER 1 PREP KIT PO ONE (10:00)
[2017-07-19 12:00] VITALS: BP 98/60
[2017-07-19] MEDS ORDERED: DEXTROSE 4 GM TAB.CHEW PO PRN (12:00)
[2017-07-19] MEDS: SODIUM CHLORIDE FLUSH 10ML SYR IVF SCH ×2 (12:00→21:00)
[2017-07-19] MEDS ORDERED: GLUCAGON 1 MG IM PRN (12:00)
[2017-07-19] MEDS ORDERED: DEXTROSE 50%, 50ML SYRINGE IVPush PRN (12:00)
[2017-07-19 20:03] VITALS: BP 105/67
[2017-07-19] MEDS: TIZANIDINE 4MG TABLET PO SCH (20:59)
[2017-07-19] MEDS: TRAZODONE 100MG TABLET PO SCH (21:00)
[2017-07-19] MEDS: ENOXAPARIN 40 MG/0.4 ML SQ SCH (22:00)
[2017-07-20 00:58] VITALS: BP 88/55
[2017-07-20] MEDS: MORPHINE SULFATE 4 MG/ML, 1ML IVPush PRN ×5 (04:23→21:13)
[2017-07-20 04:27] VITALS: BP 91/60
[2017-07-20 05:41] LABS: BASOPHILS # (AUTO) 0.04 x10^3/uL (0-0.1); BASOPHILS % (AUTO) 0 % (0-1); EOSINOPHILS % (AUTO) 1 % (1-7); LYMPHOCYTES # (AUTO) 2.37 x10^3/uL (1-3.4); LYMPHOCYTES % (AUTO) 24 % (22-44); MD NO; MEAN CORPUSCULAR HEMOGLOBIN 25.1 pg (27.0-34.8); MEAN CORPUSCULAR HGB CONC 32.5 g/dL (32.4-35.8); MEAN CORPUSCULAR VOLUME 77.3 fL (80-100); MEAN PLATELET VOLUME 8.8 fL (7.4-10.4); MONOCYTES % (AUTO) 7 % (2-9); NEUTROPHILS # (AUTO) 6.66 x10^3/uL (1.8-6.8); NEUTROPHILS % (AUTO) 68 % (42-75); PLATELET COUNT 306 x10^3/uL (130-400); RED BLOOD COUNT 3.37 x10^6/uL (3.82-5.3); RED CELL DISTRIBUTION WIDTH 18.2 % (9.6-15.2)
[2017-07-20 05:48] LABS: ALBUMIN 2.9 g/dL (3.4-5.0); ANION GAP 8 mmol/L (5-15); CHLORIDE 106 mmol/L (98-107)
[2017-07-20] MEDS: SUCRALFATE 1 GM/10 ML UDC PO SCH ×5 (06:19→21:12)
[2017-07-20] MEDS: METOCLOPRAMIDE 5 MG/ML, 2ML IVPush SCH ×3 (06:23→18:34)
[2017-07-20] MEDS: INSULIN LISPRO 100 UNITS/ML, PEN SQ-INSULIN SCH ×4 (07:00→21:00)
[2017-07-20] MEDS ORDERED: PROPOFOL 10 MG/ML, 20ML ONE (08:06)
[2017-07-20] MEDS: FLUCONAZOLE 100 MG TABLET PO SCH (09:00)
[2017-07-20] MEDS ORDERED: PROMETHAZINE 12.5 MG SUPP PR PRN (09:00)
[2017-07-20] MEDS: INSULIN GLARGINE 100 UNITS/ML, PEN SQ-INSULIN SCH ×2 (09:00→21:00)
[2017-07-20] MEDS ORDERED: FENTANYL PF 100 MCG/2ML IV PRN (09:00)
[2017-07-20] MEDS: SODIUM CHLORIDE FLUSH 10ML SYR IVF SCH ×2 (09:00→21:13)
[2017-07-20] MEDS ORDERED: MEPERIDINE/PF 25MG/0.5ML IVPush PRN (09:00)
[2017-07-20] MEDS ORDERED: LABETALOL 5MG/ML, 20ML IV PRN (09:00)
[2017-07-20] MEDS: BUPROPION SR 150 MG TABLET PO SCH ×2 (09:00→21:12)
[2017-07-20] MEDS ORDERED: hydrALAzine 20 MG/ML, 1ML IV PRN (09:00)
[2017-07-20] MEDS ORDERED: OXYcodone 5 MG/5 ML ORAL.SOL UDC PO PRN (09:00)
[2017-07-20] MEDS ORDERED: ONDANSETRON 2MG/ML, 2ML IVPush PRN (09:00)
[2017-07-20] MEDS: OMEPRAZOLE 20 MG CAPSULE.DR PO SCH ×2 (09:00→21:12)
[2017-07-20] MEDS ORDERED: IRON DEXTRAN IV PER PHARMACY IV PRN (09:00)
[2017-07-20] MEDS: LACTULOSE 10 GM/15 ML UDC PO SCH ×2 (09:00→20:07)
[2017-07-20] MEDS ORDERED: ALBUTEROL SULFATE 2.5 MG/3 ML NPPB PRN (09:00)
[2017-07-20] MEDS ORDERED: HYDROmorphone 1 MG/ML, 1ML IV PRN (09:00)
[2017-07-20] MEDS ORDERED: MIDAZOLAM 1 MG/ML, 2ML IV PRN (09:00)
[2017-07-20] MEDS: GABAPENTIN 300 MG CAPSULE PO SCH ×2 (09:00→21:12)
[2017-07-20] MEDS ORDERED: ONDANSETRON 2MG/ML, 2ML ONE (09:23)
[2017-07-20] MEDS ORDERED: IRON DEXTRAN COMPLEX 25 MG in SODIUM CHLORIDE 0.9% 50 ML IV ONE (10:00)
[2017-07-20] MEDS ORDERED: EPINEPHRINE 1 MG/ML, 1ML IV PRN (11:00)
[2017-07-20 11:20] VITALS: BP 128/84
[2017-07-20] MEDS ORDERED: IRON DEXTRAN COMPLEX 1,700 MG in SODIUM CHLORIDE 0.9% 250 ML IV ONE (12:00)
[2017-07-20 13:16] VITALS: BP 116/74
[2017-07-20 20:02] VITALS: BP 107/62
[2017-07-20] MEDS: TIZANIDINE 4MG TABLET PO SCH (21:12)
[2017-07-20] MEDS: TRAZODONE 100MG TABLET PO SCH (21:12)
[2017-07-20] MEDS: ENOXAPARIN 40 MG/0.4 ML SQ SCH (22:00)
[2017-07-21] MEDS: METOCLOPRAMIDE 5 MG/ML, 2ML IVPush SCH ×4 (00:36→18:00)
[2017-07-21] MEDS: MORPHINE SULFATE 4 MG/ML, 1ML IVPush PRN ×4 (01:51→21:26)
[2017-07-21 02:06] VITALS: BP 83/44
[2017-07-21 04:11] VITALS: BP 95/47
[2017-07-21] MEDS: SUCRALFATE 1 GM/10 ML UDC PO SCH ×4 (04:34→21:24)
[2017-07-21] MEDS: INSULIN LISPRO 100 UNITS/ML, PEN SQ-INSULIN SCH ×4 (07:00→21:25)
[2017-07-21] MEDS: SODIUM CHLORIDE FLUSH 10ML SYR IVF SCH ×2 (09:00→21:25)
[2017-07-21] MEDS: INSULIN GLARGINE 100 UNITS/ML, PEN SQ-INSULIN SCH ×2 (09:00→21:25)
[2017-07-21 10:45] VITALS: BP 115/69
[2017-07-21] MEDS: OMEPRAZOLE 20 MG CAPSULE.DR PO SCH (10:57)
[2017-07-21] MEDS: FLUCONAZOLE 100 MG TABLET PO SCH (10:57)
[2017-07-21] MEDS: GABAPENTIN 300 MG CAPSULE PO SCH ×2 (10:58→21:24)
[2017-07-21] MEDS: BUPROPION SR 150 MG TABLET PO SCH ×2 (10:58→21:24)
[2017-07-21] MEDS: LACTULOSE 10 GM/15 ML UDC PO SCH ×3 (10:58→21:28)
[2017-07-21] MEDS: FERROUS SULFATE 325 MG TABLET PO SCH ×2 (12:00→16:51)
[2017-07-21 15:00] VITALS: BP 126/64
[2017-07-21 20:00] VITALS: BP 122/52
[2017-07-21] MEDS: PANTOPROZOLE 40MG TABLET PO SCH (21:24)
[2017-07-21] MEDS: TRAZODONE 100MG TABLET PO SCH (21:24)
[2017-07-21] MEDS: TIZANIDINE 4MG TABLET PO SCH (21:25)
[2017-07-21] MEDS: ENOXAPARIN 40 MG/0.4 ML SQ SCH (21:26)
[2017-07-22] MEDS: METOCLOPRAMIDE 5 MG/ML, 2ML IVPush SCH ×2 (00:05→05:55)
[2017-07-22 02:00] VITALS: BP 95/53
[2017-07-22] MEDS: MORPHINE SULFATE 4 MG/ML, 1ML IVPush PRN ×2 (06:00→10:34)
[2017-07-22] MEDS: FERROUS SULFATE 325 MG TABLET PO SCH (07:32)
[2017-07-22] MEDS: SUCRALFATE 1 GM/10 ML UDC PO SCH (07:32)
[2017-07-22] MEDS: INSULIN LISPRO 100 UNITS/ML, PEN SQ-INSULIN SCH (07:34)
[2017-07-22] MEDS: PANTOPROZOLE 40MG TABLET PO SCH (07:41)
[2017-07-22] MEDS: ONDANSETRON 2MG/ML, 2ML IVPush PRN (07:41)
[2017-07-22] MEDS: SODIUM CHLORIDE FLUSH 10ML SYR IVF SCH (07:42)
[2017-07-22 08:30] VITALS: BP 109/57
[2017-07-22] MEDS ORDERED: GABAPENTIN 100 MG CAPSULE ONE (09:36)
[2017-07-22] MEDS ORDERED: GABAPENTIN 400 MG CAPSULE ONE (09:36)
[2017-07-22] MEDS: LACTULOSE 10 GM/15 ML UDC PO SCH (09:39)
[2017-07-22] MEDS: GABAPENTIN 300 MG CAPSULE PO SCH (09:40)
[2017-07-22] MEDS: BUPROPION SR 150 MG TABLET PO SCH (09:40)
[2017-07-22] MEDS: INSULIN GLARGINE 100 UNITS/ML, PEN SQ-INSULIN SCH (09:41)
[2017-07-22] MEDS ORDERED: SUCR1ORA5 PO (10:26)
[2017-07-22] MEDS ORDERED: PANT40TA5 PO (10:26)
[2017-07-22] MEDS ORDERED: METO5TAB2 PO (10:30)
== END 2017-07-22 11:36 | disposition home or self-care (01) | DRG 380 ==
LOC: ED 19:25 → EDIP 21:22 → SUATTDRO 21:26 → 4NOR 22:40 → 3NW 07-17 18:00
PROVIDERS: ADMIT Hospitalist; ATTEND Internal Medicine
PROC: 0T9B70Z Drainage of Bladder with Drainage Device, Via Natural or Artificial Opening (ICD-10-PCS; principal; 2017-07-13)
PROC: 0DB58ZX Excision of Esophagus, Via Natural or Artificial Opening Endoscopic, Diagnostic (ICD-10-PCS; 2017-07-20)
PROC: 0DJD8ZZ Inspection of Lower Intestinal Tract, Via Natural or Artificial Opening Endoscopic (ICD-10-PCS; 2017-07-20)
DX: K22.10 Ulcer of esophagus without bleeding (principal); E43 Unspecified severe protein-calorie malnutrition; E11.43 Type 2 diabetes mellitus with diabetic autonomic (poly)neuropathy; K31.84 Gastroparesis; A04.72 Enterocolitis due to Clostridium difficile, not specified as recurrent; F11.20 Opioid dependence, uncomplicated; E11.65 Type 2 diabetes mellitus with hyperglycemia; N30.00 Acute cystitis without hematuria; K21.0 Gastro-esophageal reflux disease with esophagitis; E83.42 Hypomagnesemia; K76.0 Fatty (change of) liver, not elsewhere classified; D50.9 Iron deficiency anemia, unspecified; E87.6 Hypokalemia; G47.33 Obstructive sleep apnea (adult) (pediatric); G89.4 Chronic pain syndrome; F41.1 Generalized anxiety disorder; I10 Essential (primary) hypertension; K29.80 Duodenitis without bleeding; K57.30 Diverticulosis of large intestine without perforation or abscess without bleeding; K82.8 Other specified diseases of gallbladder; Z79.4 Long term (current) use of insulin; Z82.49 Family history of ischemic heart disease and other diseases of the circulatory system; Z91.19 Patient's noncompliance with other medical treatment and regimen; Z90.710 Acquired absence of both cervix and uterus; Z87.891 Personal history of nicotine dependence; Z87.11 Personal history of peptic ulcer disease; Z86.14 Personal history of Methicillin resistant Staphylococcus aureus infection; Z68.29 Body mass index [BMI] 29.0-29.9, adult
CPT/HCPCS: 36415; 74021; 74177; 76700; 78227; 80048; 80053; 81001; 82040; 82272; 82962; 83036; 83540; 83550; 83690; 83735; 84100; 85014; 85018; 85025; 87086; 87324; 87493; 88305; 88312; 93005; 96361; 96372; 96374; J0696; J1650; J1750; J2405; J2704; J3480; J3486; Q9967; A9537; C9898; J1815; J2270; J2765; J3475; J7030; J7040; J7050

== ENCOUNTER 2017-07-24 15:56 | Emergency (ER) | payer OTHER ==
[~2017-07-24] VITALS: Ht 167.6 cm; Wt 80.5 kg
[~2017-07-24 15:56] MED LIST changes: +METO5TAB2 PO; +SUCR1ORA5 PO
[2017-07-24 16:02] VITALS: BP 121/72
[2017-07-24 16:47] LABS: BASOPHILS # (AUTO) 0.03 x10^3/uL (0-0.1); BASOPHILS % (AUTO) 0 % (0-1); EOSINOPHILS # (AUTO) 0.14 x10^3/uL (0-0.4); EOSINOPHILS % (AUTO) 1 % (1-7); LYMPHOCYTES # (AUTO) 2.77 x10^3/uL (1-3.4); LYMPHOCYTES % (AUTO) 26 % (22-44); MD NO; MEAN CORPUSCULAR HGB CONC 31.3 g/dL (32.4-35.8); MEAN CORPUSCULAR VOLUME 79.9 fL (80-100); MEAN PLATELET VOLUME 8.6 fL (7.4-10.4); MONOCYTES # (AUTO) 0.68 x10^3/uL (0.2-0.8); MONOCYTES % (AUTO) 6 % (2-9); NEUTROPHILS # (AUTO) 6.93 x10^3/uL (1.8-6.8); NEUTROPHILS % (AUTO) 66 % (42-75); PLATELET COUNT 325 x10^3/uL (130-400); RED CELL DISTRIBUTION WIDTH 19.4 % (9.6-15.2)
[2017-07-24 16:50] LABS: ALBUMIN 3.4 g/dL (3.4-5.0); ANION GAP 7 mmol/L (5-15); CHLORIDE 105 mmol/L (98-107); CREATININE 0.76 mg/dL (0.55-1.02)
== END 2017-07-24 17:50 | disposition home or self-care (01) ==
LOC: ED 17:44
DX: L03.113 Cellulitis of right upper limb (principal); E11.9 Type 2 diabetes mellitus without complications
CPT/HCPCS: 36415; 80048; 82040; 85025; 99284

== ENCOUNTER 2017-08-08 09:30 | Day surgery (SDC) | payer OTHER ==
[2017-08-07 11:04] LABS: ALBUMIN 3.4 g/dL (3.4-5.0); ANION GAP 5 mmol/L (5-15); CALCIUM 8.9 mg/dL (8.5-10.1); CHLORIDE 103 mmol/L (98-107)
[2017-08-07 11:07] LABS: ALANINE AMINOTRANSFERASE 29 U/L (12-78); ALKALINE PHOSPHATASE 65 U/L (45-117); BILIRUBIN,TOTAL 0.6 mg/dL (0.2-1.0); CREATININE 0.74 mg/dL (0.55-1.02); TOTAL PROTEIN 7.5 g/dL (6.4-8.2)
[2017-08-07 11:49] LABS: MEAN CORPUSCULAR HEMOGLOBIN 27.7 pg (27.0-34.8); MEAN CORPUSCULAR HGB CONC 33.1 g/dL (32.4-35.8); MEAN CORPUSCULAR VOLUME 83.5 fL (80-100); MEAN PLATELET VOLUME 8.2 fL (7.4-10.4); PLATELET COUNT 235 x10^3/uL (130-400); RED CELL DISTRIBUTION WIDTH 22.7 % (9.6-15.2)
[2017-08-07 12:12] LABS: BASOPHILS # (AUTO) 0.04 x10^3/uL (0-0.1); BASOPHILS % (AUTO) 1 % (0-1); EOSINOPHILS # (AUTO) 0.08 x10^3/uL (0-0.4); EOSINOPHILS % (AUTO) 1 % (1-7); LYMPHOCYTES # (AUTO) 1.55 x10^3/uL (1-3.4); LYMPHOCYTES % (AUTO) 27 % (22-44); MD SCAN; MONOCYTES # (AUTO) 0.36 x10^3/uL (0.2-0.8); MONOCYTES % (AUTO) 6 % (2-9); NEUTROPHILS # (AUTO) 3.75 x10^3/uL (1.8-6.8); NEUTROPHILS % (AUTO) 65 % (42-75)
[~2017-08-08] VITALS: Ht 167.6 cm; Wt 81.3 kg
[~2017-08-08 09:30] MED LIST changes: +BUPR150T73 PO; +CA C1TAB67 PO; +INSU300I SC; +MORP15TA PO; +PANT40TA3 PO
[2017-08-08] MEDS ORDERED: LACTATED RINGERS 1,000 ML IV SCH (10:05)
[2017-08-08 10:28] VITALS: BP 118/79
[2017-08-08] MEDS ORDERED: BUPIVACAINE/PF 0.5% ONE (11:11)
[2017-08-08] MEDS ORDERED: PROPOFOL 10 MG/ML, 20ML ONE (11:35)
[2017-08-08] MEDS ORDERED: DEXAMETHASONE 4 MG/ML, 1ML ONE (11:35)
[2017-08-08] MEDS ORDERED: SUCCINYLCHOLINE 20 MG/ML, 10ML ONE (11:35)
[2017-08-08] MEDS ORDERED: ONDANSETRON 2MG/ML, 2ML ONE (11:35)
[2017-08-08] MEDS ORDERED: ROCURONIUM 10 MG/ML,10ML ONE (11:35)
[2017-08-08] MEDS ORDERED: CEFAZOLIN 1,000 MG ONE (11:35)
[2017-08-08] MEDS ORDERED: MIDAZOLAM 1 MG/ML, 2ML ONE (11:37)
[2017-08-08] MEDS ORDERED: FENTANYL PF 250 MCG/5ML ONE (11:37)
[2017-08-08] MEDS ORDERED: EPHEDRINE 50 MG/ML, 1ML IVPush PRN (12:30)
[2017-08-08] MEDS ORDERED: ALBUTEROL SULFATE 2.5 MG/3 ML NPPB PRN (12:30)
[2017-08-08] MEDS ORDERED: HYDROcodone/APAP 7.5-325MG/15ML UDC PO PRN (12:30)
[2017-08-08] MEDS ORDERED: ONDANSETRON 2MG/ML, 2ML IVPush PRN (12:30)
[2017-08-08] MEDS ORDERED: LABETALOL 5MG/ML, 20ML IV PRN (12:30)
[2017-08-08] MEDS ORDERED: KETOROLAC 30 MG/1 ML IV PRN (12:30)
[2017-08-08] MEDS ORDERED: MIDAZOLAM 1 MG/ML, 2ML IV PRN (12:30)
[2017-08-08] MEDS ORDERED: THROMBIN 5,000 UNIT VIAL TP ONE (12:30)
[2017-08-08] MEDS ORDERED: PROMETHAZINE 25 MG/ML, 1ML IV PRN (12:30)
[2017-08-08] MEDS ORDERED: morphine SULFATE 10 MG/ML, 1ML IV PRN (12:30)
[2017-08-08] MEDS ORDERED: LABETALOL 5MG/ML, 20ML ONE (12:31)
[2017-08-08] MEDS ORDERED: NEOSTIGMINE 1 MG/ML, 10ML ONE (12:38)
[2017-08-08] MEDS ORDERED: GLYCOPYRROLATE 0.2MG/1ML, 5ML ONE (12:38)
[2017-08-08] MEDS ORDERED: NALOXONE 0.4 MG/ML, 1ML ONE (12:53)
[2017-08-08] MEDS ORDERED: SODIUM CHLORIDE 0.9% PF 10ML ONE (12:54)
[2017-08-08] MEDS ORDERED: KETOROLAC 30 MG/1 ML ONE (13:26)
[2017-08-08] MEDS ORDERED: FENTANYL PF 100 MCG/2ML ONE (13:26)
[2017-08-08] MEDS: FENTANYL PF 100 MCG/2ML IV PRN ×3 (13:32→13:43)
[2017-08-08] MEDS ORDERED: HYDROcodone/APAP 7.5-325MG/15ML UDC ONE (13:39)
[2017-08-08] MEDS ORDERED: morphine SULFATE 10 MG/ML, 1ML ONE (13:48)
== END 2017-08-08 15:20 ==
LOC: OUT 09:30
PROVIDERS: ATTEND Surgery
DX: K81.1 Chronic cholecystitis (principal); E11.9 Type 2 diabetes mellitus without complications; G62.9 Polyneuropathy, unspecified; G47.30 Sleep apnea, unspecified; Z87.39 Personal history of other diseases of the musculoskeletal system and connective tissue; Z90.710 Acquired absence of both cervix and uterus; Z98.890 Other specified postprocedural states; Z79.4 Long term (current) use of insulin; Z88.8 Allergy status to other drugs, medicaments and biological substances; Z87.891 Personal history of nicotine dependence
CPT/HCPCS: 36415; 47562; 80053; 82962; 85025; 88304; 93005; C1760; J0330; J0690; J1100; J1885; J2250; J2270; J2310; J2405; J2704; J2710; J3010; J3490; J7120

== ENCOUNTER → 2017-09-04 | Outpatient (CLI) | payer OTHER | END | disposition home or self-care (01) | LOC: CFH 09:55 | PROVIDERS: ATTEND Family Medicine | DX: Z12.31 Encounter for screening mammogram for malignant neoplasm of breast (principal) | CPT/HCPCS: 77067 ==

== ENCOUNTER 2018-03-09 23:15 | Inpatient (IN) | payer OTHER ==
[~2018-03-09] VITALS: Ht 167.6 cm; Wt 89.8 kg
[~2018-03-09 23:15] MED LIST changes: +TRAZ-137 PO; -TRAZ100T15 PO
[2018-03-09] MEDS ORDERED: FAMOTIDINE 20 MG TABLET PO ONE (23:30)
[2018-03-09] MEDS ORDERED: MAALOX/HYOSCYAMINE/LIDOCAINE 45 ML BTL PO ONE (23:30)
[2018-03-09 23:50] LABS: MEAN CORPUSCULAR HGB CONC 34.1 g/dL (32.4-35.8); MEAN CORPUSCULAR VOLUME 85.2 fL (80-100); MEAN PLATELET VOLUME 7.7 fL (7.4-10.4); PLATELET COUNT 416 x10^3/uL (130-400); RED BLOOD COUNT 5.61 x10^6/uL (3.82-5.3); RED CELL DISTRIBUTION WIDTH 13.7 % (9.6-15.2)
[2018-03-10 00:01] LABS: ALANINE AMINOTRANSFERASE 25 U/L (12-78); ALBUMIN 2.5 g/dL (3.4-5.0); ANION GAP 12 mmol/L (5-15); CALCIUM 7.5 mg/dL (8.5-10.1); CHLORIDE 94 mmol/L (98-107); CREATININE 0.53 mg/dL (0.55-1.02)
[2018-03-10 00:04] LABS: ALKALINE PHOSPHATASE 77 U/L (45-117); BILIRUBIN,TOTAL 0.6 mg/dL (0.2-1.0); TOTAL PROTEIN 6.3 g/dL (6.4-8.2)
[2018-03-10 00:07] LABS: MD YES
[2018-03-10 00:09] LABS: ANISOCYTOSIS 1+; BAND#(MANUAL) 0.23 x10^3/uL; BANDS%(MANUAL) 1 % (0-7); LYMPH#(MANUAL) 1.84 x10^3/uL (1-3.4); LYMPHS% (MANUAL) 8 % (22-44); METAMYELOCYTES# (MANUAL) 0.23 x10^3/uL (0-0); METAMYELOCYTES% (MANUAL) 1 % (0-1); MONOS#(MANUAL) 2.07 x10^3/uL (0.3-2.7); MONOS% (MANUAL) 9 % (2-9); MYELOCYTES# (MANUAL) 0.23 x10^3/uL (0-0); MYELOCYTES% (MANUAL) 1 % (0-0); POLYCHROMASIA 1+; SEGS% (MANUAL) 80 % (42-75)
[2018-03-10 00:10] LABS: <PLATELET ESTIMATE> ADEQUATE; <PLT MORPHOLOGY> NORMAL PLT MORPH; TROPONIN I < 0.015 ng/mL (0.000-0.045)
[2018-03-10 00:23] LABS: CULTURE INDICATED? YES; MICROSCOPIC INDICATED
[2018-03-10] MEDS ORDERED: SODIUM CHLORIDE 0.9% 1,000ML IVBOLUS ONE (00:30)
[2018-03-10] MEDS ORDERED: SODIUM CHLORIDE FLUSH 10ML SYR IVF ONE (00:30)
[2018-03-10] MEDS ORDERED: FAMOTIDINE 20 MG/2 ML ONE (00:34)
[2018-03-10] MEDS ORDERED: MAALOX/HYOSCYAMINE/LIDOCAINE 45 ML BTL ONE (00:34)
[2018-03-10] MEDS ORDERED: OMNIPAQUE 350 MG/ML, 100ML BOTTLE ONE (01:00)
[2018-03-10] MEDS ORDERED: MORP30TA PO (02:00)
[2018-03-10] MEDS ORDERED: DONE5TAB14 PO (02:00)
[2018-03-10] MEDS ORDERED: MODA100T22 PO (02:00)
[2018-03-10] MEDS ORDERED: METRONIDAZOLE PMX 500MG/100ML 100 ML IV ONE (02:00)
[2018-03-10] MEDS ORDERED: RLS MED PO (02:00)
[2018-03-10] MEDS ORDERED: CIPROFLOXACIN/PMX 400MG/200ML 200 ML IV ONE (02:00)
[2018-03-10] MEDS ORDERED: METRONIDAZOLE PMX 500MG/100ML 100 ML ONE (02:48)
[2018-03-10] MEDS ORDERED: MORPHINE SULFATE 4 MG/ML, 1ML ONE ×2 (02:49→03:45)
[2018-03-10] MEDS: MORPHINE SULFATE 4 MG/ML, 1ML IVPush PRN ×2 (02:53→03:50)
[2018-03-10] MEDS ORDERED: SODIUM CHLORIDE 0.9% 1,000 ML IV ONE (03:24)
[2018-03-10] MEDS ORDERED: MORPHINE SULFATE 4 MG/ML, 1ML IVPush PRN (03:30)
[2018-03-10] MEDS ORDERED: CIPROFLOXACIN/PMX 400MG/200ML 200 ML ONE (03:45)
[2018-03-10 04:29] VITALS: BP 140/97
[2018-03-10] MEDS ORDERED: hydrALAzine 20 MG/ML, 1ML IVPush PRN (05:00)
[2018-03-10] MEDS ORDERED: morphine SULFATE 10 MG/ML, 1ML IVPush PRN (05:00)
[2018-03-10] MEDS: POTASSIUM CHLORIDE 20 MEQ TAB.ER.PRT PO SCH ×2 (05:36→08:37)
[2018-03-10] MEDS: ENOXAPARIN 40 MG/0.4 ML SQ SCH (05:37)
[2018-03-10] MEDS: GABAPENTIN 300 MG CAPSULE PO SCH ×4 (05:37→21:13)
[2018-03-10] MEDS: OXYcodone IR 5MG TABLET PO PRN ×4 (05:37→21:13)
[2018-03-10] MEDS: NS + 20MEQ KCL 1,000 ML IV SCH ×2 (05:37→13:31)
[2018-03-10 06:56] VITALS: BP 129/78
[2018-03-10] MEDS: PANTOPRAZOLE 40 MG IV IVPush SCH (08:37)
[2018-03-10] MEDS: INSULIN GLARGINE 100 UNITS/ML, PEN SQ-INSULIN SCH (08:37)
[2018-03-10] MEDS: BUPROPION SR 150 MG TABLET PO SCH ×2 (08:37→21:13)
[2018-03-10] MEDS: MODAFINIL 100 MG TABLET PO SCH (08:50)
[2018-03-10] MEDS: INSULIN LISPRO 100 UNITS/ML, PEN SQ-INSULIN SCH ×4 (09:52→21:13)
[2018-03-10 12:06] VITALS: BP 127/83
[2018-03-10 12:19] LABS: ANION GAP 8 mmol/L (5-15); CALCIUM 7.3 mg/dL (8.5-10.1); CHLORIDE 100 mmol/L (98-107)
[2018-03-10 12:20] LABS: CREATININE 0.61 mg/dL (0.55-1.02)
[2018-03-10] MEDS ORDERED: MAGNESIUM OXIDE 400 MG TABLET PO ONE (15:00)
[2018-03-10] MEDS: METRONIDAZOLE PMX 500MG/100ML 100 ML IV SCH ×2 (15:02→22:32)
[2018-03-10] MEDS ORDERED: CIPROFLOXACIN/PMX 400MG/200ML 200 ML IV SCH ×2 (15:30→16:30)
[2018-03-10] MEDS: RLS MED PO SCH (21:00)
[2018-03-10] MEDS: TIZANIDINE 4MG TABLET PO SCH (21:13)
[2018-03-10] MEDS: DONEPEZIL 5 MG TABLET PO SCH (21:13)
[2018-03-10] MEDS: TRAZODONE 100MG TABLET PO SCH (21:13)
[2018-03-10 21:56] VITALS: BP 105/69
[2018-03-11 02:23] VITALS: BP 96/62
[2018-03-11] MEDS: OXYcodone IR 5MG TABLET PO PRN ×3 (02:33→19:45)
[2018-03-11] MEDS: ENOXAPARIN 40 MG/0.4 ML SQ SCH (05:49)
[2018-03-11 06:07] LABS: ANION GAP 9 mmol/L (5-15); CALCIUM 7.6 mg/dL (8.5-10.1); CHLORIDE 102 mmol/L (98-107)
[2018-03-11 06:08] LABS: CREATININE 0.51 mg/dL (0.55-1.02)
[2018-03-11] MEDS: GABAPENTIN 300 MG CAPSULE PO SCH ×4 (06:14→21:12)
[2018-03-11] MEDS: METRONIDAZOLE PMX 500MG/100ML 100 ML IV SCH ×3 (06:14→23:08)
[2018-03-11] MEDS ORDERED: ONDANSETRON ODT 4 MG ONE (06:17)
[2018-03-11 06:21] LABS: BASOPHILS # (AUTO) 0.03 x10^3/uL (0-0.1); BASOPHILS % (AUTO) 0 % (0-1); EOSINOPHILS # (AUTO) 0.08 x10^3/uL (0-0.4); EOSINOPHILS % (AUTO) 1 % (1-7); LYMPHOCYTES # (AUTO) 2.99 x10^3/uL (1-3.4); LYMPHOCYTES % (AUTO) 23 % (22-44); MD NO; MEAN CORPUSCULAR HGB CONC 33.6 g/dL (32.4-35.8); MEAN CORPUSCULAR VOLUME 86.5 fL (80-100); MEAN PLATELET VOLUME 7.5 fL (7.4-10.4); MONOCYTES # (AUTO) 0.88 x10^3/uL (0.2-0.8); MONOCYTES % (AUTO) 7 % (2-9); NEUTROPHILS # (AUTO) 9.22 x10^3/uL (1.8-6.8); NEUTROPHILS % (AUTO) 70 % (42-75); PLATELET COUNT 250 x10^3/uL (130-400); RED BLOOD COUNT 3.95 x10^6/uL (3.82-5.3); RED CELL DISTRIBUTION WIDTH 14.2 % (9.6-15.2)
[2018-03-11] MEDS: ONDANSETRON 2MG/ML, 2ML IVPush PRN ×2 (06:26→17:32)
[2018-03-11 06:39] VITALS: BP 102/66
[2018-03-11] MEDS: INSULIN GLARGINE 100 UNITS/ML, PEN SQ-INSULIN SCH (08:29)
[2018-03-11] MEDS: INSULIN LISPRO 100 UNITS/ML, PEN SQ-INSULIN SCH ×4 (08:29→21:11)
[2018-03-11] MEDS ORDERED: MAGNESIUM SULFATE PMX 2GM/50ML 50 ML IV ONE (09:00)
[2018-03-11] MEDS: MODAFINIL 100 MG TABLET PO SCH (09:30)
[2018-03-11] MEDS: PANTOPRAZOLE 40 MG IV IVPush SCH (09:30)
[2018-03-11] MEDS: BUPROPION SR 150 MG TABLET PO SCH ×2 (09:30→21:12)
[2018-03-11] MEDS: POTASSIUM CHLORIDE 20 MEQ TAB.ER.PRT PO SCH ×2 (10:14→17:04)
[2018-03-11 12:35] VITALS: BP 106/70
[2018-03-11 18:49] VITALS: BP 110/65
[2018-03-11] MEDS: RLS MED PO SCH (21:00)
[2018-03-11] MEDS: TIZANIDINE 4MG TABLET PO SCH (21:12)
[2018-03-11] MEDS: TRAZODONE 100MG TABLET PO SCH (21:12)
[2018-03-11] MEDS: DONEPEZIL 5 MG TABLET PO SCH (21:12)
[2018-03-11 21:37] LABS: CLOSTRIDIUM DIFFICILE ANTIGEN NEGATIVE; CLOSTRIDIUM DIFFICILE TOXIN NEGATIVE (Negative)
[2018-03-12 02:29] VITALS: BP 103/62
[2018-03-12] MEDS: OXYcodone IR 5MG TABLET PO PRN (03:24)
[2018-03-12] MEDS ORDERED: FAMOTIDINE 20 MG TABLET PO ONE (04:00)
[2018-03-12] MEDS: ENOXAPARIN 40 MG/0.4 ML SQ SCH (06:00)
[2018-03-12] MEDS: GABAPENTIN 300 MG CAPSULE PO SCH ×2 (06:30→11:59)
[2018-03-12] MEDS: METRONIDAZOLE PMX 500MG/100ML 100 ML IV SCH (06:31)
[2018-03-12 07:13] VITALS: BP 120/76
[2018-03-12] MEDS: BUPROPION SR 150 MG TABLET PO SCH (07:54)
[2018-03-12] MEDS: PANTOPRAZOLE 40 MG IV IVPush SCH (07:54)
[2018-03-12] MEDS: INSULIN LISPRO 100 UNITS/ML, PEN SQ-INSULIN SCH ×2 (07:54→11:00)
[2018-03-12] MEDS: MODAFINIL 100 MG TABLET PO SCH (07:54)
[2018-03-12] MEDS: INSULIN GLARGINE 100 UNITS/ML, PEN SQ-INSULIN SCH (07:55)
[2018-03-12 12:34] VITALS: BP 117/74
[2018-03-13] MEDS ORDERED: PANTOPROZOLE 40MG TABLET PO SCH (07:30)
== END 2018-03-12 17:46 | disposition home or self-care (01) | DRG 392 ==
LOC: ED 03-10 00:16 → EDIP 03-10 03:24 → 3NE 03-10 04:15
PROVIDERS: ADMIT Internal Medicine; ATTEND Internal Medicine
DX: A09 Infectious gastroenteritis and colitis, unspecified (principal); E87.1 Hypo-osmolality and hyponatremia; N39.0 Urinary tract infection, site not specified; E11.43 Type 2 diabetes mellitus with diabetic autonomic (poly)neuropathy; E11.65 Type 2 diabetes mellitus with hyperglycemia; E66.01 Morbid (severe) obesity due to excess calories; E86.0 Dehydration; E87.6 Hypokalemia; F10.20 Alcohol dependence, uncomplicated; F41.1 Generalized anxiety disorder; G47.33 Obstructive sleep apnea (adult) (pediatric); G89.4 Chronic pain syndrome; I10 Essential (primary) hypertension; J44.9 Chronic obstructive pulmonary disease, unspecified; K21.9 Gastro-esophageal reflux disease without esophagitis; K31.84 Gastroparesis; K76.0 Fatty (change of) liver, not elsewhere classified; Z68.32 Body mass index [BMI] 32.0-32.9, adult; Z82.49 Family history of ischemic heart disease and other diseases of the circulatory system; Z86.14 Personal history of Methicillin resistant Staphylococcus aureus infection; Z86.718 Personal history of other venous thrombosis and embolism; Z87.11 Personal history of peptic ulcer disease; Z90.710 Acquired absence of both cervix and uterus; Z90.49 Acquired absence of other specified parts of digestive tract; Z90.89 Acquired absence of other organs; Z88.8 Allergy status to other drugs, medicaments and biological substances
CPT/HCPCS: 36415; 74177; 80048; 80053; 81001; 82962; 83690; 83735; 84100; 84484; 85025; 87040; 87086; 87324; 89055; 93005; 96361; 96374; 96375; 96376; G0378; J0744; J2405; J3480; Q9967; C9113; J1815; J3475; J7030

== ENCOUNTER 2018-08-25 17:44 | Emergency (ER) | payer OTHER ==
[~2018-08-25] VITALS: Ht 167.6 cm; Wt 81.0 kg
[~2018-08-25 17:44] MED LIST changes: +DONE5TAB14 PO; -GABA600T2 PO; +GABA600T7 PO; -GABA800T2; -GABA800T2 PO; +GABA800T5; +GABA800T5 PO; +MODA100T22 PO; +MORP30TA PO; +RLS MED PO; +TRAM100T33 PO
[2018-08-25 18:49] LABS: BASOPHILS % (AUTO) 0 % (0-1); EOSINOPHILS % (AUTO) 0 % (1-7); LYMPHOCYTES # (AUTO) 1.34 x10^3/uL (1-3.4); LYMPHOCYTES % (AUTO) 9 % (22-44); MD NO; MEAN CORPUSCULAR HEMOGLOBIN 24.5 pg (27.0-34.8); MEAN CORPUSCULAR HGB CONC 32.6 g/dL (32.4-35.8); MEAN CORPUSCULAR VOLUME 75.1 fL (80-100); MEAN PLATELET VOLUME 8.1 fL (7.4-10.4); MONOCYTES # (AUTO) 0.25 x10^3/uL (0.2-0.8); MONOCYTES % (AUTO) 2 % (2-9); NEUTROPHILS # (AUTO) 14.11 x10^3/uL (1.8-6.8); NEUTROPHILS % (AUTO) 90 % (42-75); PLATELET COUNT 326 x10^3/uL (130-400); RED BLOOD COUNT 5.89 x10^6/uL (3.82-5.3); RED CELL DISTRIBUTION WIDTH 15.2 % (9.6-15.2)
[2018-08-25 18:57] LABS: PROTHROMBIN TIME 10.5 Seconds (9.6-11.5)
[2018-08-25 19:00] LABS: ALANINE AMINOTRANSFERASE 18 U/L (12-78); ALBUMIN 3.8 g/dL (3.4-5.0); ANION GAP 10 mmol/L (5-15); CALCIUM 9.1 mg/dL (8.5-10.1); CHLORIDE 95 mmol/L (98-107); CREATININE 1.07 mg/dL (0.55-1.02)
[2018-08-25 19:02] LABS: ALKALINE PHOSPHATASE 116 U/L (45-117); BILIRUBIN,TOTAL 0.4 mg/dL (0.2-1.0); TOTAL PROTEIN 8.4 g/dL (6.4-8.2)
[2018-08-25 19:15] LABS: MICROSCOPIC NOT IND
[2018-08-25 19:19] LABS: CULTURE INDICATED? NO
[2018-08-25] MEDS ORDERED: ONDANSETRON 2MG/ML, 2ML IVPush ONE (20:30)
[2018-08-25] MEDS ORDERED: MORPHINE SULFATE 4 MG/ML, 1ML IVPush ONE (20:30)
[2018-08-25] MEDS ORDERED: SODIUM CHLORIDE FLUSH 10ML SYR IVF ONE (20:30)
[2018-08-25] MEDS ORDERED: MORPHINE SULFATE 4 MG/ML, 1ML ONE (20:57)
[2018-08-25] MEDS ORDERED: ONDANSETRON 2MG/ML, 2ML ONE (20:57)
[2018-08-25] MEDS ORDERED: SODIUM CHLORIDE 0.9% 1,000ML IVBOLUS ONE (21:00)
[2018-08-25 21:04] VITALS: BP 159/92
[2018-08-25] MEDS ORDERED: OMNIPAQUE 350 MG/ML, 100ML BOTTLE ONE (22:23)
== END 2018-08-25 22:24 | disposition home or self-care (01) ==
LOC: ED 18:31
DX: R10.84 Generalized abdominal pain (principal); E11.65 Type 2 diabetes mellitus with hyperglycemia; R11.0 Nausea; K21.9 Gastro-esophageal reflux disease without esophagitis; I10 Essential (primary) hypertension; Z88.8 Allergy status to other drugs, medicaments and biological substances
CPT/HCPCS: 36415; 74021; 74177; 80053; 81003; 83690; 85025; 85610; 96361; 96374; 96375; 99284; J2405; J7030; Q9967

== ENCOUNTER 2018-08-26 14:10 | Observation (INO) | payer OTHER ==
[~2018-08-26] VITALS: Ht 167.6 cm; Wt 86.7 kg
[2018-08-26] MEDS ORDERED: FAMOTIDINE 20 MG/2 ML IVPush ONE (14:30)
[2018-08-26] MEDS ORDERED: PLEASE ENTER HEIGHT AND WEIGHT MC SCH (14:30)
[2018-08-26 14:49] LABS: BASOPHILS # (AUTO) 0.06 x10^3/uL (0-0.1); BASOPHILS % (AUTO) 0 % (0-1); EOSINOPHILS # (AUTO) 0.02 x10^3/uL (0-0.4); EOSINOPHILS % (AUTO) 0 % (1-7); LYMPHOCYTES # (AUTO) 1.77 x10^3/uL (1-3.4); LYMPHOCYTES % (AUTO) 13 % (22-44); MD NO; MEAN CORPUSCULAR HEMOGLOBIN 23.8 pg (27.0-34.8); MEAN CORPUSCULAR VOLUME 74.3 fL (80-100); MEAN PLATELET VOLUME 8.3 fL (7.4-10.4); MONOCYTES # (AUTO) 0.47 x10^3/uL (0.2-0.8); MONOCYTES % (AUTO) 3 % (2-9); NEUTROPHILS # (AUTO) 11.41 x10^3/uL (1.8-6.8); NEUTROPHILS % (AUTO) 83 % (42-75); PLATELET COUNT 315 x10^3/uL (130-400); RED BLOOD COUNT 5.48 x10^6/uL (3.82-5.3); RED CELL DISTRIBUTION WIDTH 15.3 % (9.6-15.2)
[2018-08-26] MEDS ORDERED: METOCLOPRAMIDE 5 MG/ML, 2ML ONE (14:58)
[2018-08-26] MEDS ORDERED: MORPHINE SULFATE 4 MG/ML, 1ML ONE ×3 (14:59→21:01)
[2018-08-26] MEDS ORDERED: FAMOTIDINE 20 MG/2 ML ONE (14:59)
[2018-08-26 15:00] LABS: ALANINE AMINOTRANSFERASE 19 U/L (12-78); ALBUMIN 3.6 g/dL (3.4-5.0); ANION GAP 10 mmol/L (5-15); CALCIUM 8.7 mg/dL (8.5-10.1); CHLORIDE 96 mmol/L (98-107); CREATININE 1.02 mg/dL (0.55-1.02)
[2018-08-26] MEDS ORDERED: METOCLOPRAMIDE 5 MG/ML, 2ML IVPush ONE (15:00)
[2018-08-26] MEDS ORDERED: MORPHINE SULFATE 4 MG/ML, 1ML IVPush ONE (15:00)
[2018-08-26 15:03] LABS: ALKALINE PHOSPHATASE 94 U/L (45-117); BILIRUBIN,TOTAL 0.8 mg/dL (0.2-1.0); TOTAL PROTEIN 7.8 g/dL (6.4-8.2)
[2018-08-26] MEDS: METOCLOPRAMIDE 5 MG/ML, 2ML IVPush ONE ×2 (15:07→15:31)
[2018-08-26 15:10] LABS: PH, VENOUS 7.443 pH (7.320-7.420)
[2018-08-26 15:12] LABS: O2 FLOW ROOM AIR L/min
[2018-08-26] MEDS ORDERED: ZIPRASIDONE 20 MG INJ IM ONE ×3 (15:29→15:33)
[2018-08-26] MEDS ORDERED: morphine SULFATE 10 MG/ML, 1ML IVPush ONE (15:30)
--- NOTE | 2018-08-26 15:47 | NUR ---
Pt ambulates to restroom from ED room with steady gait and balance to provide urine sample.
--- NOTE | 2018-08-26 15:49 | NUR ---
LATE NOTE ENTRY FOR 1445: Pt resting on varun. OLGA. Pt states, "I was here last night for pain from my gastroporeisis. I am still in a lot of pain and I can't eat."
[2018-08-26 16:02] LABS: MICROSCOPIC NOT IND
[2018-08-26] MEDS ORDERED: hydrALAzine 20 MG/ML, 1ML IV ONE (16:30)
[2018-08-26] MEDS ORDERED: ACETAMINOPHEN 325 MG TABLET PO PRN (17:00)
[2018-08-26] MEDS ORDERED: morphine SULFATE 10 MG/ML, 1ML IVPush PRN (17:00)
[2018-08-26] MEDS ORDERED: hydrALAzine 20 MG/ML, 1ML IVPush PRN (17:00)
[2018-08-26] MEDS ORDERED: METOCLOPRAMIDE 5 MG/ML, 2ML IVPush PRN (17:00)
--- NOTE | 2018-08-26 17:02 | NUR ---
SENT YELLOW SLIP TO PHARMACY. RECIEVED MEDICAITON. ADMINISTERED MEDICATION PER EMAR.
[2018-08-26] MEDS ORDERED: ENOXAPARIN 40 MG/0.4 ML ONE (17:22)
[2018-08-26] MEDS ORDERED: LISINOPRIL 5 MG TABLET ONE (17:22)
[2018-08-26] MEDS ORDERED: LISINOPRIL 10 MG TABLET PO ONE (17:30)
[2018-08-26] MEDS: SODIUM CHLORIDE 0.9% 1,000 ML IV SCH (17:35)
[2018-08-26] MEDS: ENOXAPARIN 40 MG/0.4 ML SQ SCH (17:36)
[2018-08-26 18:46] LABS: HEMOGLOBIN A1C 10.7 % (4.2-6.3)
--- NOTE | 2018-08-26 19:07 | NUR ---
Provided bedside report to ILEANA Gonzalez. All questions answered. Lisa assuming care of pt at this time.
--- NOTE | 2018-08-26 19:25 | NUR ---
RECEIVED REPORT FROM EFREN TEJEDA. CARE ASSUMED AT THIS TIME. PT ASSISTED TO RESTROOM, AMBULATORY TO RESTROOM WITH STEADY GAIT. RESTING IN POSITION OF COMFORT. ALL NEEDS MET AND ADDRESSED. VSS. CALL LIGHT IN REACH. FALL PRECAUTIONS IN PLACE. BP IMPROVING, DISCUSSED WITH DR. AUGUST, AWARE, NO NEW ORDERS RECEIVED FOR BP. PT WITH HX HTN. CONTINUE AWAITING ROOM ON FLOOR, PT MEDICAL HOLD AT THIS TIME PER TP RN.
--- NOTE | 2018-08-26 19:26 | NUR ---
NO FSBS AT THIS TIME PER NISHA CANNON AND DR. AUGUST, "WE ALREADY GOT THAT FROM LAB RESULTS, NOT NEEDED, DISREGARD ORDER."
--- NOTE | 2018-08-26 20:41 | NUR ---
PT UP AND AMBULATORY TO RESTROOM WITH SARAH TEJEDA. BACK TO BED RESTING IN POSITION OF COMFORT. ALL NEEDS MET AND ADRESSED. CALL LIGHT IN REACH. VSS.
[2018-08-26] MEDS: TIZANIDINE 4MG TABLET PO SCH (21:00)
[2018-08-26] MEDS: GABAPENTIN 300 MG CAPSULE PO SCH (21:00)
[2018-08-26] MEDS: BUPROPION SR 150 MG TABLET PO SCH (21:00)
[2018-08-26] MEDS: DOCUSATE 100 MG CAPSULE PO SCH (21:00)
[2018-08-26] MEDS ORDERED: morphine SULFATE 15 MG TAB.IR PO SCH (21:00)
[2018-08-26] MEDS: PANTOPROZOLE 40MG TABLET PO SCH (21:00)
[2018-08-26] MEDS: TRAZODONE 100MG TABLET PO SCH (21:00)
[2018-08-26] MEDS: INSULIN GLARGINE 100 UNITS/ML, PEN SQ-INSULIN SCH (21:00)
[2018-08-26] MEDS: INSULIN LISPRO 100 UNITS/ML, PEN SQ-INSULIN SCH (21:00)
--- NOTE | 2018-08-26 21:04 | NUR ---
AMBULATED TO BATHROOM, STEADY GAIT AND NO ASSISTANCE NEEDED. MEDICATED PER ORDERS FOR PAIN.
--- NOTE | 2018-08-26 21:09 | NUR ---
SCHEDULED MEDICATIONS REQUESTED FROM PHARMACY
--- NOTE | 2018-08-26 21:30 | NUR ---
PT AMBULATORY TO RESTROOM WITH STEADY GAIT. ASSISTED BACK TO BED, RESTING COMFORTABLY. CONTINUE AWAITING SCHEDULED MEDS AND ROOM ON FLOOR
--- NOTE | 2018-08-26 21:45 | NUR ---
SCHEDULED MEDICATIONS REQUESTEDX2 FROM PHARMACY.
--- NOTE | 2018-08-26 22:25 | NUR ---
PT AMBULATORY TO RESTROOM WITH STEADY GAIT. FSBS CHECK FOR SLIDING SCALE ORDER, 269, TO MEDICATE ONCE RX RECEIVED FROM PHARMACY. CALL LIGHT IN REACH. VSS. RESTING COMFORTBALY. HOSPITAL BED REQUESTED FOR COMFORT.
[2018-08-26] MEDS ORDERED: GABAPENTIN 300 MG CAPSULE ONE (22:52)
[2018-08-26] MEDS ORDERED: DOCUSATE 100 MG CAPSULE ONE (22:52)
--- NOTE | 2018-08-26 23:00 | NUR ---
REPORT AND CARE TO BREAK ILEANA ARTEAGA AT THIS TIME.
--- NOTE | 2018-08-26 23:00 | NUR ---
MEDICATIONS RECEIVED FROM PHARMACY, JENNI TEJEDA TO MEDICATE PER ORDER.
--- NOTE | 2018-08-26 23:43 | NUR ---
VERBAL/PHONE REPORT TO LAFONSO RN FOR ROOM 309.
--- NOTE | 2018-08-26 23:45 | NUR ---
PT MEDICATED NOTED PER ORDER FOR 6/10 CHRONIC BACK PAIN. RESTING COMFORTABLY. VSS. CALL LIGHT IN REACH. AWAITING HOSPITAL BED AND ROOM ASSIGNMENT
--- NOTE | 2018-08-26 23:53 | NUR ---
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
--- NOTE | 2018-08-27 00:43 | NUR ---
PT RECEIVED ROOM ON FLOOR, ICU BED 1 (OVERFLOW FOR MEDICAL), VERBAL/PHONE REPORT TO ABIMAEL TEJEDA. PT UPDATED ON POC. AWAITING TRANSPORT TO FLOOR. CALL LIGHT IN REACH. FALL PRECUATIONS IN PLACE.
[2018-08-27] MEDS: SODIUM CHLORIDE 0.9% 1,000 ML IV SCH ×3 (01:00→21:53)
[2018-08-27 01:27] VITALS: BP 88/54
[2018-08-27 04:40] LABS: BASOPHILS # (AUTO) 0.05 x10^3/uL (0-0.1); BASOPHILS % (AUTO) 1 % (0-1); EOSINOPHILS # (AUTO) 0.26 x10^3/uL (0-0.4); EOSINOPHILS % (AUTO) 2 % (1-7); LYMPHOCYTES # (AUTO) 3.29 x10^3/uL (1-3.4); LYMPHOCYTES % (AUTO) 29 % (22-44); MD NO; MEAN CORPUSCULAR HEMOGLOBIN 24.4 pg (27.0-34.8); MEAN CORPUSCULAR HGB CONC 32.8 g/dL (32.4-35.8); MEAN CORPUSCULAR VOLUME 74.5 fL (80-100); MEAN PLATELET VOLUME 7.8 fL (7.4-10.4); MONOCYTES # (AUTO) 0.75 x10^3/uL (0.2-0.8); MONOCYTES % (AUTO) 7 % (2-9); NEUTROPHILS % (AUTO) 61 % (42-75); PLATELET COUNT 301 x10^3/uL (130-400); RED BLOOD COUNT 4.89 x10^6/uL (3.82-5.3); RED CELL DISTRIBUTION WIDTH 15.2 % (9.6-15.2)
[2018-08-27 04:51] LABS: ALANINE AMINOTRANSFERASE 18 U/L (12-78); ANION GAP 6 mmol/L (5-15); CALCIUM 8.3 mg/dL (8.5-10.1); CHLORIDE 102 mmol/L (98-107); CREATININE 0.86 mg/dL (0.55-1.02)
[2018-08-27 04:54] LABS: ALKALINE PHOSPHATASE 83 U/L (45-117); BILIRUBIN,TOTAL 0.4 mg/dL (0.2-1.0); TOTAL PROTEIN 6.5 g/dL (6.4-8.2)
[2018-08-27] MEDS: GABAPENTIN 300 MG CAPSULE PO SCH ×4 (05:49→21:33)
[2018-08-27] MEDS ORDERED: PANTOPRAZOLE 40 MG IV IVPush SCH (07:30)
[2018-08-27 08:00] VITALS: BP 110/66
[2018-08-27] MEDS: BUPROPION SR 150 MG TABLET PO SCH ×2 (09:52→21:33)
[2018-08-27] MEDS: DOCUSATE 100 MG CAPSULE PO SCH ×2 (09:53→21:34)
[2018-08-27] MEDS: INSULIN LISPRO 100 UNITS/ML, PEN SQ-INSULIN SCH ×4 (10:20→21:53)
[2018-08-27 10:45] VITALS: BP 124/79
[2018-08-27] MEDS: morphine SULFATE 15 MG TAB.IR PO PRN ×3 (11:01→21:56)
[2018-08-27 14:00] VITALS: BP 151/79
[2018-08-27] MEDS: ENOXAPARIN 40 MG/0.4 ML SQ SCH (17:00)
[2018-08-27] MEDS: PANTOPROZOLE 40MG TABLET PO SCH (21:33)
[2018-08-27] MEDS: TRAZODONE 100MG TABLET PO SCH (21:34)
[2018-08-27] MEDS: TIZANIDINE 4MG TABLET PO SCH (21:34)
[2018-08-27 21:57] VITALS: BP 144/79
[2018-08-27] MEDS: INSULIN GLARGINE 100 UNITS/ML, PEN SQ-INSULIN SCH (22:39)
[2018-08-28 02:30] VITALS: BP 99/62
[2018-08-28] MEDS: morphine SULFATE 15 MG TAB.IR PO PRN ×2 (04:31→09:33)
[2018-08-28 04:32] LABS: BASOPHILS # (AUTO) 0.04 x10^3/uL (0-0.1); BASOPHILS % (AUTO) 0 % (0-1); EOSINOPHILS # (AUTO) 0.18 x10^3/uL (0-0.4); EOSINOPHILS % (AUTO) 2 % (1-7); LYMPHOCYTES % (AUTO) 29 % (22-44); MD NO; MEAN CORPUSCULAR HEMOGLOBIN 24.5 pg (27.0-34.8); MEAN CORPUSCULAR HGB CONC 32.6 g/dL (32.4-35.8); MEAN PLATELET VOLUME 7.9 fL (7.4-10.4); MONOCYTES # (AUTO) 0.67 x10^3/uL (0.2-0.8); MONOCYTES % (AUTO) 7 % (2-9); NEUTROPHILS # (AUTO) 5.59 x10^3/uL (1.8-6.8); NEUTROPHILS % (AUTO) 61 % (42-75); PLATELET COUNT 230 x10^3/uL (130-400); RED BLOOD COUNT 4.57 x10^6/uL (3.82-5.3); RED CELL DISTRIBUTION WIDTH 15.2 % (9.6-15.2)
[2018-08-28 04:39] LABS: ANION GAP 6 mmol/L (5-15); CALCIUM 7.8 mg/dL (8.5-10.1); CHLORIDE 105 mmol/L (98-107)
[2018-08-28] MEDS: GABAPENTIN 300 MG CAPSULE PO SCH ×2 (05:52→12:16)
[2018-08-28] MEDS: INSULIN LISPRO 100 UNITS/ML, PEN SQ-INSULIN SCH ×2 (07:00→13:07)
[2018-08-28] MEDS: DOCUSATE 100 MG CAPSULE PO SCH (09:00)
[2018-08-28] MEDS: BUPROPION SR 150 MG TABLET PO SCH (09:03)
[2018-08-28 09:06] VITALS: BP 115/73
[2018-08-28] MEDS: SODIUM CHLORIDE 0.9% 1,000 ML IV SCH (10:20)
[2018-08-28 14:00] VITALS: BP 154/83
== END 2018-08-28 16:30 | disposition home or self-care (01) ==
LOC: ED 16:17 → INTOOBSV 16:56 → EDIP 16:56 → ICU 08-27 00:55
PROVIDERS: ADMIT Internal Medicine Infectious Disease; ATTEND Internal Medicine Infectious Disease
DX: R10.9 Unspecified abdominal pain (principal); M54.9 Dorsalgia, unspecified; E11.43 Type 2 diabetes mellitus with diabetic autonomic (poly)neuropathy; E11.65 Type 2 diabetes mellitus with hyperglycemia; E86.0 Dehydration; G89.29 Other chronic pain; I10 Essential (primary) hypertension; J44.9 Chronic obstructive pulmonary disease, unspecified; K21.9 Gastro-esophageal reflux disease without esophagitis; Z79.4 Long term (current) use of insulin; Z86.19 Personal history of other infectious and parasitic diseases; Z87.11 Personal history of peptic ulcer disease; Z90.710 Acquired absence of both cervix and uterus; Z98.1 Arthrodesis status
CPT/HCPCS: 36415; 80048; 80053; 81003; 82803; 82962; 83036; 83690; 85025; 87081; 96361; 96372; 96374; 96375; 96376; 99284; C9113; G0378; J0360; J1650; J1815; J2270; J3486; J3490; J7030; 99285; J2765

== ENCOUNTER 2018-10-04 08:16 | Emergency (ER) | payer OTHER ==
[~2018-10-04] VITALS: Ht 167.6 cm; Wt 82.0 kg
--- NOTE | 2018-10-04 08:40 | NUR ---
THIS IS A 63 YEAR OLD FEMALE WHO C/O OF SEVERE BACK PAIN AND NAUSEA. ASKED IF PT CAN OBTAIN A UA, PT STATES NOT AT THIS TIME.
[2018-10-04] MEDS ORDERED: FENTANYL PF 100 MCG/2ML ONE (08:41)
[2018-10-04] MEDS ORDERED: FENTANYL PF 100 MCG/2ML IM ONE (09:00)
[2018-10-04 09:26] LABS: BASOPHILS # (AUTO) 0.05 x10^3/uL (0-0.1); BASOPHILS % (AUTO) 0 % (0-1); EOSINOPHILS # (AUTO) 0.04 x10^3/uL (0-0.4); EOSINOPHILS % (AUTO) 0 % (1-7); LYMPHOCYTES # (AUTO) 1.77 x10^3/uL (1-3.4); LYMPHOCYTES % (AUTO) 14 % (22-44); MD NO; MEAN CORPUSCULAR HEMOGLOBIN 24.1 pg (27.0-34.8); MEAN CORPUSCULAR HGB CONC 32.2 g/dL (32.4-35.8); MEAN CORPUSCULAR VOLUME 74.8 fL (80-100); MEAN PLATELET VOLUME 8.2 fL (7.4-10.4); MONOCYTES # (AUTO) 0.67 x10^3/uL (0.2-0.8); MONOCYTES % (AUTO) 5 % (2-9); NEUTROPHILS # (AUTO) 9.79 x10^3/uL (1.8-6.8); NEUTROPHILS % (AUTO) 80 % (42-75); PLATELET COUNT 321 x10^3/uL (130-400); RED BLOOD COUNT 6.02 x10^6/uL (3.82-5.3); RED CELL DISTRIBUTION WIDTH 17.9 % (9.6-15.2)
--- NOTE | 2018-10-04 09:30 | NUR ---
PT STATES PAIN IS "MUCH BETTER", ASKED IF SHE CAN OBTAIN UA, PT STATES, "I WILL WHEN I CAN"
[2018-10-04 09:53] LABS: ALBUMIN 3.6 g/dL (3.4-5.0)
[2018-10-04 10:02] LABS: ALKALINE PHOSPHATASE 88 U/L (45-117); ANION GAP 9 mmol/L (5-15); BILIRUBIN,TOTAL 0.8 mg/dL (0.2-1.0); CHLORIDE 97 mmol/L (98-107); CREATININE 0.92 mg/dL (0.55-1.02)
[2018-10-04 10:14] LABS: ALANINE AMINOTRANSFERASE 20 U/L (12-78)
[2018-10-04] MEDS ORDERED: SODIUM CHLORIDE FLUSH 10ML SYR IVF ONE (10:30)
[2018-10-04] MEDS ORDERED: SODIUM CHLORIDE 0.9% 1,000ML IVBOLUS ONE (10:30)
[2018-10-04 10:31] LABS: MICROSCOPIC AUTO
[2018-10-04 10:35] VITALS: BP 151/83
[2018-10-04 10:39] LABS: CULTURE INDICATED? YES
--- NOTE | 2018-10-04 10:42 | NUR ---
OBTAINED UA SENT TO LAB, STARTED IV, EXPLAINED PLAN OF CARE WITH PATIENT WHO VERBALIZED UDNERSTANDING. CALL LIGHT IN PLACE
--- NOTE | 2018-10-04 12:18 | NUR ---
SECOND LITER OF FLUID INFUSING, PT UP TO BATHROOM GAIT SLOW AND STEADY. PT VERBALIZED NO NEEDS AT THIS TIME.
--- NOTE | 2018-10-04 13:14 | NUR ---
BREAK RN: PT RESTING WITH EYES CLOSED, IVF INFUSING W/O DIFFICULTY
--- NOTE | 2018-10-04 13:43 | NUR ---
Patient/Caregiver given discharge instructions and they have confirmed that they understand the instructions. Patient ambulatory with steady gait.
== END 2018-10-04 13:45 | disposition home or self-care (01) ==
LOC: ED 08:51
DX: R10.84 Generalized abdominal pain (principal); E11.65 Type 2 diabetes mellitus with hyperglycemia; J44.9 Chronic obstructive pulmonary disease, unspecified; I10 Essential (primary) hypertension
CPT/HCPCS: 36415; 74021; 80053; 81001; 83605; 83690; 85025; 87086; 96360; 96361; 96372; 99284; J3010; J7030

== ENCOUNTER 2019-04-27 09:50 | Inpatient (IN) | payer OTHER ==
[~2019-04-27] VITALS: Ht 167.6 cm; Wt 89.5 kg
[~2019-04-27 09:50] MED LIST changes: -TIZA4TAB PO; +TIZA4TAB2 PO
--- NOTE | 2019-04-27 12:00 | NUR ---
TO ROOM 04
--- NOTE | 2019-04-27 12:04 | NUR ---
PATIENT BROUGHT BACK FROM TRIAGE WITH CHIEF COMPLAINT OF POSSIBLE RIGHT LOWER EXTREMITY CELLULITIS. PATIENT STATES SHE HAS A WOUND ON BOTTOM OF FOOT 10 DAYS AGO, HOW WHOLE FOOT IS RED. THE PATIENT DENIES N/V, FEVER, CP, SOB. THE PATIENT IS WARM, DRY, AWAKE, & ORIENTED.
[2019-04-27 12:18] LABS: ALBUMIN 3.1 g/dL (3.4-5.0); ANION GAP 9 mmol/L (5-15); CALCIUM 8.7 mg/dL (8.5-10.1); CHLORIDE 97 mmol/L (98-107); CREATININE 0.87 mg/dL (0.55-1.02)
[2019-04-27 12:22] LABS: BASOPHILS # (AUTO) 0.03 x10^3/uL (0-0.1); BASOPHILS % (AUTO) 0 % (0-1); EOSINOPHILS # (AUTO) 0.07 x10^3/uL (0-0.4); EOSINOPHILS % (AUTO) 1 % (1-7); LYMPHOCYTES # (AUTO) 1.53 x10^3/uL (1-3.4); LYMPHOCYTES % (AUTO) 19 % (22-44); MD NO; MEAN CORPUSCULAR HEMOGLOBIN 25.6 pg (27.0-34.8); MEAN CORPUSCULAR HGB CONC 32.5 g/dL (32.4-35.8); MEAN CORPUSCULAR VOLUME 78.8 fL (80-100); MEAN PLATELET VOLUME 8.4 fL (7.4-10.4); MONOCYTES # (AUTO) 0.48 x10^3/uL (0.2-0.8); MONOCYTES % (AUTO) 6 % (2-9); NEUTROPHILS # (AUTO) 6.17 x10^3/uL (1.8-6.8); NEUTROPHILS % (AUTO) 75 % (42-75); PLATELET COUNT 260 x10^3/uL (130-400); RED BLOOD COUNT 5.15 x10^6/uL (3.82-5.3); RED CELL DISTRIBUTION WIDTH 15.5 % (9.6-15.2)
[2019-04-27] MEDS ORDERED: VANCOMYCIN PER PHARMACY MC PRN (13:00)
[2019-04-27] MEDS ORDERED: SODIUM CHLORIDE FLUSH 10ML SYR IVF ONE (13:00)
[2019-04-27] MEDS ORDERED: VANCOMYCIN 1,800 MG in SODIUM CHLORIDE 0.9% 250 ML IV ONE (13:00)
[2019-04-27] MEDS ORDERED: AMPICILLIN/SULBACTAM 3 GM in SODIUM CHLORIDE 0.9% 100 ML IV ONE (13:00)
[2019-04-27] MEDS ORDERED: SODIUM CHLORIDE 0.9% 1,000 ML IV ONE (13:04)
[2019-04-27] MEDS ORDERED: SODIUM CHLORIDE FLUSH 10ML SYR IVF PRN (13:30)
[2019-04-27] MEDS ORDERED: SODIUM CHLORIDE 0.9% 1,000ML IVBOLUS ONE (13:30)
[2019-04-27] MEDS ORDERED: CEFAZOLIN 2,000 MG in SODIUM CHLORIDE 0.9% 50 ML IV SCH (13:30)
--- NOTE | 2019-04-27 13:44 | NUR ---
REPORT CALLED TO RYLAN TEJEDA, PT TRANSFERED TO 356. BENITO RN AWARE OF ABX INFUSION, HOWEVER WOUND CONSULT NOT COMPLETED AT THIS TIME.
--- NOTE | 2019-04-27 13:45 | NUR ---
MIV NOT STARTED PRIOR TO TRANSFER, ABX INFUSING.
[2019-04-27 13:48] LABS: HCT (SEDRATE) 40.6 % (34.6-47.8)
[2019-04-27] MEDS ORDERED: ACETAMINOPHEN 325 MG TABLET PO PRN (14:00)
[2019-04-27 15:00] VITALS: BP 159/80
[2019-04-27] MEDS: OXYcodone/APAP 5/325MG TABLET PO PRN ×2 (15:11→20:59)
[2019-04-27] MEDS: ENOXAPARIN 40 MG/0.4 ML SQ SCH (15:15)
[2019-04-27] MEDS ORDERED: OMNIPAQUE 350 MG/ML, 100ML BOTTLE ONE (15:58)
[2019-04-27] MEDS: CEFAZOLIN 2,000 MG in SODIUM CHLORIDE 0.9% 50 ML IV SCH ×2 (16:04→23:27)
[2019-04-27 16:55] LABS: HEMOGLOBIN A1C 11.7 % (4.2-6.3)
[2019-04-27] MEDS: GABAPENTIN 300 MG CAPSULE PO SCH ×2 (17:10→20:59)
[2019-04-27] MEDS: INSULIN LISPRO 100 UNITS/ML, PEN SQ-INSULIN SCH ×2 (18:00→20:59)
[2019-04-27 20:15] VITALS: BP 134/76
[2019-04-27] MEDS: VANCOMYCIN 50 MG/ML ORAL SUSP PO SCH (20:57)
[2019-04-27] MEDS: TRAZODONE 100MG TABLET PO PRN (20:58)
[2019-04-27] MEDS: DOCUSATE 100 MG CAPSULE PO SCH (20:59)
[2019-04-27] MEDS: PANTOPROZOLE 40MG TABLET PO SCH (20:59)
[2019-04-27] MEDS: TIZANIDINE 4MG TABLET PO SCH (20:59)
[2019-04-27] MEDS: BUPROPION SR 150 MG TABLET PO SCH (20:59)
[2019-04-27] MEDS ORDERED: INSULIN GLARGINE 100 UNITS/ML, PEN SQ-INSULIN SCH (21:00)
[2019-04-28 02:01] VITALS: BP 99/58
[2019-04-28] MEDS: GABAPENTIN 300 MG CAPSULE PO SCH ×4 (05:32→20:20)
[2019-04-28] MEDS: DOCUSATE 100 MG CAPSULE PO SCH ×2 (07:48→20:22)
[2019-04-28] MEDS: CEFAZOLIN 2,000 MG in SODIUM CHLORIDE 0.9% 50 ML IV SCH (07:48)
[2019-04-28] MEDS: BUPROPION SR 150 MG TABLET PO SCH ×2 (07:48→20:21)
[2019-04-28] MEDS: INSULIN LISPRO 100 UNITS/ML, PEN SQ-INSULIN SCH ×4 (07:52→20:35)
[2019-04-28] MEDS: OXYcodone/APAP 5/325MG TABLET PO PRN ×4 (08:10→20:33)
[2019-04-28] MEDS: INSULIN GLARGINE 100 UNITS/ML, PEN SQ-INSULIN SCH ×3 (09:00→20:36)
[2019-04-28] MEDS: VANCOMYCIN 50 MG/ML ORAL SUSP PO SCH ×2 (09:27→20:25)
[2019-04-28 10:52] VITALS: BP 109/65
[2019-04-28 13:41] VITALS: BP 132/60
[2019-04-28] MEDS: ENOXAPARIN 40 MG/0.4 ML SQ SCH (15:30)
[2019-04-28] MEDS: CEFAZOLIN PMX 2GM/50ML 50 ML IVPB SCH ×2 (15:41→23:10)
[2019-04-28 18:52] VITALS: BP 166/95
[2019-04-28] MEDS: TIZANIDINE 4MG TABLET PO SCH (20:20)
[2019-04-28] MEDS: PANTOPROZOLE 40MG TABLET PO SCH (20:21)
[2019-04-28] MEDS: TRAZODONE 100MG TABLET PO PRN (20:22)
[2019-04-29 03:14] VITALS: BP 117/77
[2019-04-29] MEDS: OXYcodone/APAP 5/325MG TABLET PO PRN ×5 (03:38→20:00)
[2019-04-29 05:09] LABS: BASOPHILS # (AUTO) 0.03 x10^3/uL (0-0.1); BASOPHILS % (AUTO) 1 % (0-1); EOSINOPHILS # (AUTO) 0.11 x10^3/uL (0-0.4); EOSINOPHILS % (AUTO) 2 % (1-7); LYMPHOCYTES # (AUTO) 1.48 x10^3/uL (1-3.4); LYMPHOCYTES % (AUTO) 22 % (22-44); MD NO; MEAN CORPUSCULAR HEMOGLOBIN 25.4 pg (27.0-34.8); MEAN CORPUSCULAR HGB CONC 32.1 g/dL (32.4-35.8); MEAN CORPUSCULAR VOLUME 79.2 fL (80-100); MEAN PLATELET VOLUME 7.8 fL (7.4-10.4); MONOCYTES # (AUTO) 0.57 x10^3/uL (0.2-0.8); MONOCYTES % (AUTO) 9 % (2-9); NEUTROPHILS # (AUTO) 4.47 x10^3/uL (1.8-6.8); NEUTROPHILS % (AUTO) 67 % (42-75); PLATELET COUNT 237 x10^3/uL (130-400); RED BLOOD COUNT 4.75 x10^6/uL (3.82-5.3); RED CELL DISTRIBUTION WIDTH 15.4 % (9.6-15.2)
[2019-04-29 05:16] LABS: ANION GAP 6 mmol/L (5-15); CALCIUM 8.2 mg/dL (8.5-10.1); CHLORIDE 102 mmol/L (98-107); CREATININE 0.91 mg/dL (0.55-1.02)
[2019-04-29] MEDS: GABAPENTIN 300 MG CAPSULE PO SCH ×4 (05:23→20:00)
[2019-04-29] MEDS: INSULIN GLARGINE 100 UNITS/ML, PEN SQ-INSULIN SCH ×2 (07:35→20:11)
[2019-04-29] MEDS: INSULIN LISPRO 100 UNITS/ML, PEN SQ-INSULIN SCH ×4 (07:35→20:11)
[2019-04-29] MEDS: DOCUSATE 100 MG CAPSULE PO SCH ×2 (07:36→20:01)
[2019-04-29] MEDS: BUPROPION SR 150 MG TABLET PO SCH ×2 (07:36→20:00)
[2019-04-29] MEDS: CEFAZOLIN PMX 2GM/50ML 50 ML IVPB SCH ×3 (07:36→23:16)
[2019-04-29] MEDS: VANCOMYCIN 50 MG/ML ORAL SUSP PO SCH ×2 (07:37→20:01)
[2019-04-29 08:25] VITALS: BP 132/82
[2019-04-29 12:35] VITALS: BP 144/78
[2019-04-29] MEDS: ENOXAPARIN 40 MG/0.4 ML SQ SCH (14:59)
[2019-04-29 19:02] VITALS: BP 172/98
[2019-04-29] MEDS: TIZANIDINE 4MG TABLET PO SCH (19:59)
[2019-04-29] MEDS: TRAZODONE 100MG TABLET PO PRN (20:00)
[2019-04-29] MEDS: PANTOPROZOLE 40MG TABLET PO SCH (20:10)
[2019-04-30] MEDS: OXYcodone/APAP 5/325MG TABLET PO PRN ×3 (00:01→15:58)
[2019-04-30 01:22] VITALS: BP 108/68
[2019-04-30] MEDS: GABAPENTIN 300 MG CAPSULE PO SCH ×4 (05:44→20:22)
[2019-04-30] MEDS: CEFAZOLIN PMX 2GM/50ML 50 ML IVPB SCH (07:12)
[2019-04-30] MEDS: BUPROPION SR 150 MG TABLET PO SCH ×2 (07:48→20:22)
[2019-04-30] MEDS: DOCUSATE 100 MG CAPSULE PO SCH ×2 (07:48→20:22)
[2019-04-30] MEDS: VANCOMYCIN 50 MG/ML ORAL SUSP PO SCH ×2 (07:48→20:21)
[2019-04-30] MEDS: INSULIN LISPRO 100 UNITS/ML, PEN SQ-INSULIN SCH ×4 (08:19→20:21)
[2019-04-30] MEDS: INSULIN GLARGINE 100 UNITS/ML, PEN SQ-INSULIN SCH ×2 (08:20→20:20)
[2019-04-30 08:30] VITALS: BP 118/70
[2019-04-30] MEDS ORDERED: LINEZOLID 600 MG TABLET PO SCH (09:00)
[2019-04-30] MEDS: LACTOBACILLUS CHEW TABLET PO SCH ×3 (11:23→20:18)
[2019-04-30] MEDS ORDERED: PHARMACOKINETIC MONITORING MC PRN (11:30)
[2019-04-30] MEDS ORDERED: VANCOMYCIN PER PHARMACY MC PRN (11:30)
[2019-04-30] MEDS ORDERED: VANCOMYCIN 1,800 MG in SODIUM CHLORIDE 0.9% 250 ML IV SCH (11:30)
[2019-04-30] MEDS ORDERED: PHARMACOKINETIC CONSULTATION MC ONE (11:30)
[2019-04-30 13:03] VITALS: BP 143/85
[2019-04-30] MEDS: ENOXAPARIN 40 MG/0.4 ML SQ SCH (15:58)
[2019-04-30] MEDS: TIZANIDINE 4MG TABLET PO SCH (20:18)
[2019-04-30] MEDS: TRAZODONE 100MG TABLET PO PRN (20:19)
[2019-04-30] MEDS: PANTOPROZOLE 40MG TABLET PO SCH (20:21)
[2019-04-30] MEDS: MICONAZOLE 7 VAG. CRM 2%, 45GM VG SCH (20:22)
[2019-04-30] MEDS: LINEZOLID PMX 600MG/300ML 300 ML IV SCH (20:22)
[2019-04-30 20:39] VITALS: BP 149/94
[2019-05-01] MEDS: OXYcodone/APAP 5/325MG TABLET PO PRN ×4 (01:48→20:21)
[2019-05-01 02:46] VITALS: BP 112/75
[2019-05-01] MEDS: GABAPENTIN 300 MG CAPSULE PO SCH ×4 (05:13→20:23)
[2019-05-01 06:11] LABS: CREATININE 0.84 mg/dL (0.55-1.02)
[2019-05-01 07:54] VITALS: BP 130/81
[2019-05-01] MEDS: DOCUSATE 100 MG CAPSULE PO SCH ×2 (08:13→20:22)
[2019-05-01] MEDS: BUPROPION SR 150 MG TABLET PO SCH ×2 (08:13→20:24)
[2019-05-01] MEDS: VANCOMYCIN 50 MG/ML ORAL SUSP PO SCH ×2 (08:13→20:22)
[2019-05-01] MEDS: LACTOBACILLUS CHEW TABLET PO SCH ×3 (08:13→20:23)
[2019-05-01] MEDS: LINEZOLID PMX 600MG/300ML 300 ML IV SCH ×2 (08:14→20:20)
[2019-05-01] MEDS: INSULIN GLARGINE 100 UNITS/ML, PEN SQ-INSULIN SCH ×2 (08:14→20:20)
[2019-05-01] MEDS: INSULIN LISPRO 100 UNITS/ML, PEN SQ-INSULIN SCH ×4 (08:15→20:19)
[2019-05-01 13:42] VITALS: BP 169/85
[2019-05-01] MEDS: ENOXAPARIN 40 MG/0.4 ML SQ SCH (15:43)
[2019-05-01 19:37] VITALS: BP 148/84
[2019-05-01] MEDS: MICONAZOLE 7 VAG. CRM 2%, 45GM VG SCH (20:22)
[2019-05-01] MEDS: TIZANIDINE 4MG TABLET PO SCH (20:23)
[2019-05-01] MEDS: TRAZODONE 100MG TABLET PO PRN (20:23)
[2019-05-01] MEDS: PANTOPROZOLE 40MG TABLET PO SCH (20:23)
[2019-05-02] MEDS: OXYcodone/APAP 5/325MG TABLET PO PRN ×3 (02:27→13:46)
[2019-05-02 02:30] VITALS: BP 94/64
[2019-05-02] MEDS: GABAPENTIN 300 MG CAPSULE PO SCH ×2 (05:32→11:38)
[2019-05-02 08:24] VITALS: BP 136/80
[2019-05-02] MEDS: DOCUSATE 100 MG CAPSULE PO SCH (08:28)
[2019-05-02] MEDS: LINEZOLID PMX 600MG/300ML 300 ML IV SCH (08:28)
[2019-05-02] MEDS: LACTOBACILLUS CHEW TABLET PO SCH (08:28)
[2019-05-02] MEDS: VANCOMYCIN 50 MG/ML ORAL SUSP PO SCH (08:28)
[2019-05-02] MEDS: BUPROPION SR 150 MG TABLET PO SCH (08:29)
[2019-05-02] MEDS: INSULIN LISPRO 100 UNITS/ML, PEN SQ-INSULIN SCH ×2 (08:30→12:09)
[2019-05-02] MEDS ORDERED: ACID1TAB7 PO (08:47)
[2019-05-02] MEDS ORDERED: LINE600T12 PO (08:47)
[2019-05-02] MEDS: INSULIN GLARGINE 100 UNITS/ML, PEN SQ-INSULIN SCH (09:00)
[2019-05-02] MEDS ORDERED: LACTOBACILLUS CHEW TABLET PO SCH (09:00)
[2019-05-02] MEDS ORDERED: FLUC200T PO (09:19)
[2019-05-02] MEDS: FLUCONAZOLE 100 MG TABLET PO ONE ×2 (09:30→11:39)
[2019-05-02] MEDS ORDERED: INSU100I13 SQ-INSULIN (09:31)
[2019-05-02 12:56] VITALS: BP 125/55
== END 2019-05-02 15:53 | disposition home or self-care (01) | DRG 638 ==
LOC: ED 13:33 → 3N 14:16
PROVIDERS: ADMIT Internal Medicine Infectious Disease; ATTEND Internal Medicine
DX: E11.621 Type 2 diabetes mellitus with foot ulcer (principal); L03.115 Cellulitis of right lower limb; F11.20 Opioid dependence, uncomplicated; Z16.21 Resistance to vancomycin; B37.3 Candidiasis of vulva and vagina; B95.2 Enterococcus as the cause of diseases classified elsewhere; G89.4 Chronic pain syndrome; I10 Essential (primary) hypertension; J44.9 Chronic obstructive pulmonary disease, unspecified; K27.9 Peptic ulcer, site unspecified, unspecified as acute or chronic, without hemorrhage or perforation; L97.519 Non-pressure chronic ulcer of other part of right foot with unspecified severity; Z79.4 Long term (current) use of insulin; Z86.14 Personal history of Methicillin resistant Staphylococcus aureus infection; Z86.19 Personal history of other infectious and parasitic diseases; Z90.710 Acquired absence of both cervix and uterus; Z98.1 Arthrodesis status; E11.43 Type 2 diabetes mellitus with diabetic autonomic (poly)neuropathy; Z88.8 Allergy status to other drugs, medicaments and biological substances; Z90.49 Acquired absence of other specified parts of digestive tract
CPT/HCPCS: 36415; 73630; 96365; 96375; 99285; J3370; 80048; 82040; 82565; 82962; 83036; 85025; 85651; 86140; 87040; 87070; 87077; 87186; 87205; G0378; J0295; J0690; J1650; J2020; Q9967; J1815; J7030; J7050

== ENCOUNTER → 2019-05-08 | Outpatient (CLI) | payer OTHER ==
[~2019-05-08] MED LIST changes: +ACID1TAB7 PO; +FLUC200T PO; +INSU100I13 SQ-INSULIN; +LINE600T12 PO
== END | disposition home or self-care (01) ==
LOC: WOUND 08:08
PROVIDERS: ATTEND Podiatrist Foot & Ankle Surgery
DX: E11.621 Type 2 diabetes mellitus with foot ulcer (principal); L97.511 Non-pressure chronic ulcer of other part of right foot limited to breakdown of skin; L84 Corns and callosities; E11.40 Type 2 diabetes mellitus with diabetic neuropathy, unspecified; K21.9 Gastro-esophageal reflux disease without esophagitis; G47.30 Sleep apnea, unspecified; J44.9 Chronic obstructive pulmonary disease, unspecified; G89.4 Chronic pain syndrome; E11.43 Type 2 diabetes mellitus with diabetic autonomic (poly)neuropathy; F11.20 Opioid dependence, uncomplicated; Z86.14 Personal history of Methicillin resistant Staphylococcus aureus infection; Z88.8 Allergy status to other drugs, medicaments and biological substances; M20.11 Hallux valgus (acquired), right foot; Z90.49 Acquired absence of other specified parts of digestive tract; Z90.710 Acquired absence of both cervix and uterus; Z79.4 Long term (current) use of insulin
CPT/HCPCS: 97597; 99215

== ENCOUNTER → 2019-05-22 | Outpatient (CLI) | payer OTHER | END | disposition home or self-care (01) | LOC: WOUND 15:00 | PROVIDERS: ATTEND Podiatrist Foot & Ankle Surgery | DX: E11.621 Type 2 diabetes mellitus with foot ulcer (principal); L97.512 Non-pressure chronic ulcer of other part of right foot with fat layer exposed; L84 Corns and callosities; K21.9 Gastro-esophageal reflux disease without esophagitis; G47.30 Sleep apnea, unspecified; J44.9 Chronic obstructive pulmonary disease, unspecified; G89.4 Chronic pain syndrome; E11.43 Type 2 diabetes mellitus with diabetic autonomic (poly)neuropathy; E11.42 Type 2 diabetes mellitus with diabetic polyneuropathy; I10 Essential (primary) hypertension; F11.20 Opioid dependence, uncomplicated; Z86.14 Personal history of Methicillin resistant Staphylococcus aureus infection; Z88.8 Allergy status to other drugs, medicaments and biological substances; M20.11 Hallux valgus (acquired), right foot; Z90.49 Acquired absence of other specified parts of digestive tract; Z90.710 Acquired absence of both cervix and uterus; Z79.4 Long term (current) use of insulin | CPT/HCPCS: 11042; 87070; 87077; 87186; 87205 ==

== ENCOUNTER → 2019-05-29 | Outpatient (CLI) | payer OTHER | END | disposition home or self-care (01) | LOC: WOUND 14:04 | PROVIDERS: ATTEND Podiatrist Foot & Ankle Surgery | DX: E11.621 Type 2 diabetes mellitus with foot ulcer (principal); L97.512 Non-pressure chronic ulcer of other part of right foot with fat layer exposed; L84 Corns and callosities; K21.9 Gastro-esophageal reflux disease without esophagitis; G47.30 Sleep apnea, unspecified; J44.9 Chronic obstructive pulmonary disease, unspecified; G89.4 Chronic pain syndrome; E11.43 Type 2 diabetes mellitus with diabetic autonomic (poly)neuropathy; E11.42 Type 2 diabetes mellitus with diabetic polyneuropathy; I10 Essential (primary) hypertension; F11.20 Opioid dependence, uncomplicated; Z86.14 Personal history of Methicillin resistant Staphylococcus aureus infection; Z88.8 Allergy status to other drugs, medicaments and biological substances; M20.11 Hallux valgus (acquired), right foot; Z90.49 Acquired absence of other specified parts of digestive tract; Z90.710 Acquired absence of both cervix and uterus; Z79.4 Long term (current) use of insulin | CPT/HCPCS: 11042 ==

== ENCOUNTER → 2019-06-05 | Outpatient (CLI) | payer OTHER | END | disposition home or self-care (01) | LOC: WOUND 14:42 | PROVIDERS: ATTEND Podiatrist Foot & Ankle Surgery | CPT/HCPCS: 11042 ==

== ENCOUNTER → 2019-06-19 | Outpatient (CLI) | payer OTHER | END | disposition home or self-care (01) | LOC: WOUND 14:28 | PROVIDERS: ATTEND Podiatrist Foot & Ankle Surgery | DX: E11.621 Type 2 diabetes mellitus with foot ulcer (principal); L97.512 Non-pressure chronic ulcer of other part of right foot with fat layer exposed; E11.42 Type 2 diabetes mellitus with diabetic polyneuropathy; L03.115 Cellulitis of right lower limb; L84 Corns and callosities; M20.11 Hallux valgus (acquired), right foot; M54.9 Dorsalgia, unspecified; E11.610 Type 2 diabetes mellitus with diabetic neuropathic arthropathy; G89.29 Other chronic pain; K21.9 Gastro-esophageal reflux disease without esophagitis; J44.9 Chronic obstructive pulmonary disease, unspecified; I10 Essential (primary) hypertension; G47.30 Sleep apnea, unspecified; Z79.4 Long term (current) use of insulin; Z90.710 Acquired absence of both cervix and uterus; Z90.49 Acquired absence of other specified parts of digestive tract; Z98.1 Arthrodesis status | CPT/HCPCS: 11042 ==

== ENCOUNTER 2019-06-26 14:31 | Outpatient (CLI) | payer OTHER ==
[~2019-06-26 14:31] MED LIST changes: -TRAZ-137 PO; +TRAZ-175 PO
== END 2019-06-26 23:59 | disposition home or self-care (01) ==
LOC: WOUND 14:31
PROVIDERS: ATTEND Podiatrist Foot & Ankle Surgery
DX: E11.621 Type 2 diabetes mellitus with foot ulcer (principal); L97.512 Non-pressure chronic ulcer of other part of right foot with fat layer exposed; E11.42 Type 2 diabetes mellitus with diabetic polyneuropathy; L03.115 Cellulitis of right lower limb; L84 Corns and callosities; M20.11 Hallux valgus (acquired), right foot; M54.9 Dorsalgia, unspecified; E11.610 Type 2 diabetes mellitus with diabetic neuropathic arthropathy; G89.29 Other chronic pain; K21.9 Gastro-esophageal reflux disease without esophagitis; J44.9 Chronic obstructive pulmonary disease, unspecified; I10 Essential (primary) hypertension; G47.30 Sleep apnea, unspecified; Z79.4 Long term (current) use of insulin; Z90.710 Acquired absence of both cervix and uterus; Z90.49 Acquired absence of other specified parts of digestive tract; Z98.1 Arthrodesis status
CPT/HCPCS: 11042

== ENCOUNTER 2019-07-03 14:39 | Outpatient (CLI) | payer OTHER ==
[~2019-07-03 14:39] MED LIST changes: +TRAZ-137 PO; -TRAZ-175 PO
== END 2019-07-03 23:59 | disposition home or self-care (01) ==
LOC: WOUND 14:39
PROVIDERS: ATTEND Podiatrist Foot & Ankle Surgery
DX: E11.621 Type 2 diabetes mellitus with foot ulcer (principal); L97.512 Non-pressure chronic ulcer of other part of right foot with fat layer exposed; E11.40 Type 2 diabetes mellitus with diabetic neuropathy, unspecified; E11.610 Type 2 diabetes mellitus with diabetic neuropathic arthropathy; M20.11 Hallux valgus (acquired), right foot; I10 Essential (primary) hypertension; K21.9 Gastro-esophageal reflux disease without esophagitis; G89.29 Other chronic pain; M54.9 Dorsalgia, unspecified; J44.9 Chronic obstructive pulmonary disease, unspecified; G47.30 Sleep apnea, unspecified; Z86.14 Personal history of Methicillin resistant Staphylococcus aureus infection; Z79.4 Long term (current) use of insulin; Z90.710 Acquired absence of both cervix and uterus; Z90.49 Acquired absence of other specified parts of digestive tract; Z98.1 Arthrodesis status
CPT/HCPCS: 11042

== ENCOUNTER 2019-07-10 14:40 | Outpatient (CLI) | payer OTHER ==
[~2019-07-10 14:40] MED LIST changes: -TRAZ-137 PO; +TRAZ-175 PO
== END 2019-07-10 23:59 | disposition home or self-care (01) ==
LOC: WOUND 14:40
PROVIDERS: ATTEND Podiatrist Foot & Ankle Surgery
DX: E11.621 Type 2 diabetes mellitus with foot ulcer (principal); L97.512 Non-pressure chronic ulcer of other part of right foot with fat layer exposed; E11.42 Type 2 diabetes mellitus with diabetic polyneuropathy; L03.115 Cellulitis of right lower limb; L84 Corns and callosities; E11.610 Type 2 diabetes mellitus with diabetic neuropathic arthropathy; I10 Essential (primary) hypertension; K21.9 Gastro-esophageal reflux disease without esophagitis; J44.9 Chronic obstructive pulmonary disease, unspecified; M20.11 Hallux valgus (acquired), right foot; M54.9 Dorsalgia, unspecified; G89.29 Other chronic pain; G47.30 Sleep apnea, unspecified; Z79.4 Long term (current) use of insulin; Z90.710 Acquired absence of both cervix and uterus; Z90.49 Acquired absence of other specified parts of digestive tract; Z98.1 Arthrodesis status
CPT/HCPCS: 11042

== ENCOUNTER 2019-07-24 14:19 | Outpatient (CLI) | payer OTHER | END 2019-07-24 23:59 | disposition home or self-care (01) | LOC: WOUND 14:19 | PROVIDERS: ATTEND Podiatrist Foot & Ankle Surgery | DX: E11.621 Type 2 diabetes mellitus with foot ulcer (principal); L97.512 Non-pressure chronic ulcer of other part of right foot with fat layer exposed; E11.40 Type 2 diabetes mellitus with diabetic neuropathy, unspecified; E11.610 Type 2 diabetes mellitus with diabetic neuropathic arthropathy; M20.11 Hallux valgus (acquired), right foot; I10 Essential (primary) hypertension; K21.9 Gastro-esophageal reflux disease without esophagitis; G89.29 Other chronic pain; M54.9 Dorsalgia, unspecified; J44.9 Chronic obstructive pulmonary disease, unspecified; G47.30 Sleep apnea, unspecified; Z86.14 Personal history of Methicillin resistant Staphylococcus aureus infection; Z79.4 Long term (current) use of insulin; Z90.710 Acquired absence of both cervix and uterus; Z90.49 Acquired absence of other specified parts of digestive tract; Z98.1 Arthrodesis status | CPT/HCPCS: 11042 ==

== ENCOUNTER 2019-07-31 14:32 | Outpatient (CLI) | payer OTHER | END 2019-07-31 23:59 | disposition home or self-care (01) | LOC: WOUND 14:32 | PROVIDERS: ATTEND Podiatrist Foot & Ankle Surgery | DX: E11.621 Type 2 diabetes mellitus with foot ulcer (principal); L97.512 Non-pressure chronic ulcer of other part of right foot with fat layer exposed; L84 Corns and callosities; E11.610 Type 2 diabetes mellitus with diabetic neuropathic arthropathy; E11.42 Type 2 diabetes mellitus with diabetic polyneuropathy; I10 Essential (primary) hypertension; L03.115 Cellulitis of right lower limb; M20.11 Hallux valgus (acquired), right foot; M54.9 Dorsalgia, unspecified; K21.9 Gastro-esophageal reflux disease without esophagitis; J44.9 Chronic obstructive pulmonary disease, unspecified; G47.30 Sleep apnea, unspecified; G89.29 Other chronic pain; Z86.14 Personal history of Methicillin resistant Staphylococcus aureus infection; Z90.49 Acquired absence of other specified parts of digestive tract; Z79.4 Long term (current) use of insulin; Z98.1 Arthrodesis status; Z90.710 Acquired absence of both cervix and uterus | CPT/HCPCS: 11042; 87070; 87077; 87186; 87205 ==

== ENCOUNTER 2019-08-07 13:00 | Outpatient (CLI) | payer OTHER | END 2019-08-07 23:59 | disposition home or self-care (01) | LOC: WOUND 13:00 | PROVIDERS: ATTEND Podiatrist Foot & Ankle Surgery | DX: E11.621 Type 2 diabetes mellitus with foot ulcer (principal); L97.512 Non-pressure chronic ulcer of other part of right foot with fat layer exposed; L84 Corns and callosities; E11.610 Type 2 diabetes mellitus with diabetic neuropathic arthropathy; E11.42 Type 2 diabetes mellitus with diabetic polyneuropathy; I10 Essential (primary) hypertension; L03.115 Cellulitis of right lower limb; M20.11 Hallux valgus (acquired), right foot; M54.9 Dorsalgia, unspecified; K21.9 Gastro-esophageal reflux disease without esophagitis; J44.9 Chronic obstructive pulmonary disease, unspecified; G47.30 Sleep apnea, unspecified; G89.29 Other chronic pain; Z86.14 Personal history of Methicillin resistant Staphylococcus aureus infection; Z90.49 Acquired absence of other specified parts of digestive tract; Z79.4 Long term (current) use of insulin; Z98.1 Arthrodesis status; Z90.710 Acquired absence of both cervix and uterus | CPT/HCPCS: 11042; 87070; 87077; 87186; 87205 ==

== ENCOUNTER → 2019-08-14 | Outpatient (CLI) | payer OTHER | END | disposition home or self-care (01) | LOC: WOUND 14:06 | PROVIDERS: ATTEND Podiatrist Foot & Ankle Surgery | DX: E11.621 Type 2 diabetes mellitus with foot ulcer (principal); L97.512 Non-pressure chronic ulcer of other part of right foot with fat layer exposed; L84 Corns and callosities; E11.610 Type 2 diabetes mellitus with diabetic neuropathic arthropathy; E11.42 Type 2 diabetes mellitus with diabetic polyneuropathy; I10 Essential (primary) hypertension; M20.11 Hallux valgus (acquired), right foot; K21.9 Gastro-esophageal reflux disease without esophagitis; J44.9 Chronic obstructive pulmonary disease, unspecified; G89.29 Other chronic pain; Z79.4 Long term (current) use of insulin; Z90.710 Acquired absence of both cervix and uterus; Z90.49 Acquired absence of other specified parts of digestive tract; Z98.1 Arthrodesis status; Z86.14 Personal history of Methicillin resistant Staphylococcus aureus infection | CPT/HCPCS: 11042 ==

== ENCOUNTER 2019-08-21 14:28 | Outpatient (CLI) | payer OTHER | END 2019-08-21 23:59 | disposition home or self-care (01) | LOC: WOUND 14:28 | PROVIDERS: ATTEND Podiatrist Foot & Ankle Surgery | DX: E11.621 Type 2 diabetes mellitus with foot ulcer (principal); L97.512 Non-pressure chronic ulcer of other part of right foot with fat layer exposed; M20.11 Hallux valgus (acquired), right foot; E11.42 Type 2 diabetes mellitus with diabetic polyneuropathy; E11.610 Type 2 diabetes mellitus with diabetic neuropathic arthropathy; I10 Essential (primary) hypertension; J44.9 Chronic obstructive pulmonary disease, unspecified; K21.9 Gastro-esophageal reflux disease without esophagitis; G89.29 Other chronic pain; G47.30 Sleep apnea, unspecified; Z86.14 Personal history of Methicillin resistant Staphylococcus aureus infection; Z79.4 Long term (current) use of insulin; Z90.710 Acquired absence of both cervix and uterus; Z90.49 Acquired absence of other specified parts of digestive tract; Z98.1 Arthrodesis status | CPT/HCPCS: 11042 ==

== ENCOUNTER → 2019-08-28 | Outpatient (CLI) | payer OTHER | END | disposition home or self-care (01) | LOC: WOUND 14:01 | PROVIDERS: ATTEND Podiatrist Foot & Ankle Surgery | DX: E11.621 Type 2 diabetes mellitus with foot ulcer (principal); L97.512 Non-pressure chronic ulcer of other part of right foot with fat layer exposed; L84 Corns and callosities; M20.11 Hallux valgus (acquired), right foot; E11.610 Type 2 diabetes mellitus with diabetic neuropathic arthropathy; E11.42 Type 2 diabetes mellitus with diabetic polyneuropathy; I10 Essential (primary) hypertension; K21.9 Gastro-esophageal reflux disease without esophagitis; G47.30 Sleep apnea, unspecified; G89.29 Other chronic pain; J44.9 Chronic obstructive pulmonary disease, unspecified; Z79.4 Long term (current) use of insulin; Z86.14 Personal history of Methicillin resistant Staphylococcus aureus infection; Z90.710 Acquired absence of both cervix and uterus; Z90.49 Acquired absence of other specified parts of digestive tract; Z98.1 Arthrodesis status | CPT/HCPCS: 11042 ==

== ENCOUNTER 2019-09-11 10:25 | Outpatient (CLI) | payer OTHER | END 2019-09-11 23:59 | disposition home or self-care (01) | LOC: WOUND 10:25 | PROVIDERS: ATTEND Podiatrist Foot & Ankle Surgery | DX: E11.621 Type 2 diabetes mellitus with foot ulcer (principal); L97.512 Non-pressure chronic ulcer of other part of right foot with fat layer exposed; L84 Corns and callosities; M20.11 Hallux valgus (acquired), right foot; E11.610 Type 2 diabetes mellitus with diabetic neuropathic arthropathy; E11.42 Type 2 diabetes mellitus with diabetic polyneuropathy; I10 Essential (primary) hypertension; K21.9 Gastro-esophageal reflux disease without esophagitis; G47.30 Sleep apnea, unspecified; G89.29 Other chronic pain; J44.9 Chronic obstructive pulmonary disease, unspecified; Z79.4 Long term (current) use of insulin; Z86.14 Personal history of Methicillin resistant Staphylococcus aureus infection; Z90.710 Acquired absence of both cervix and uterus; Z90.49 Acquired absence of other specified parts of digestive tract; Z98.1 Arthrodesis status | CPT/HCPCS: 11042 ==

== ENCOUNTER → 2019-09-18 | Outpatient (CLI) | payer OTHER | END | disposition home or self-care (01) | LOC: WOUND 10:21 | PROVIDERS: ATTEND Podiatrist Foot & Ankle Surgery | DX: E11.621 Type 2 diabetes mellitus with foot ulcer (principal); L97.512 Non-pressure chronic ulcer of other part of right foot with fat layer exposed; L84 Corns and callosities; M20.11 Hallux valgus (acquired), right foot; E11.610 Type 2 diabetes mellitus with diabetic neuropathic arthropathy; E11.42 Type 2 diabetes mellitus with diabetic polyneuropathy; J44.9 Chronic obstructive pulmonary disease, unspecified; I10 Essential (primary) hypertension; K21.9 Gastro-esophageal reflux disease without esophagitis; G47.30 Sleep apnea, unspecified; G89.29 Other chronic pain; Z79.82 Long term (current) use of aspirin; Z86.14 Personal history of Methicillin resistant Staphylococcus aureus infection; Z90.710 Acquired absence of both cervix and uterus; Z90.49 Acquired absence of other specified parts of digestive tract; Z98.1 Arthrodesis status | CPT/HCPCS: 11042 ==

== ENCOUNTER → 2019-09-25 | Outpatient (CLI) | payer OTHER | END | disposition home or self-care (01) | LOC: WOUND 11:30 | PROVIDERS: ATTEND Podiatrist Foot & Ankle Surgery | DX: E11.621 Type 2 diabetes mellitus with foot ulcer (principal); L97.512 Non-pressure chronic ulcer of other part of right foot with fat layer exposed; L84 Corns and callosities; M20.11 Hallux valgus (acquired), right foot; E11.610 Type 2 diabetes mellitus with diabetic neuropathic arthropathy; E11.42 Type 2 diabetes mellitus with diabetic polyneuropathy; I10 Essential (primary) hypertension; J44.9 Chronic obstructive pulmonary disease, unspecified; G47.30 Sleep apnea, unspecified; G89.29 Other chronic pain; K21.9 Gastro-esophageal reflux disease without esophagitis; Z79.4 Long term (current) use of insulin; Z90.49 Acquired absence of other specified parts of digestive tract; Z90.710 Acquired absence of both cervix and uterus; Z98.1 Arthrodesis status; Z86.14 Personal history of Methicillin resistant Staphylococcus aureus infection; Z79.82 Long term (current) use of aspirin | CPT/HCPCS: 11042 ==

== ENCOUNTER 2019-10-02 10:36 | Outpatient (CLI) | payer OTHER | END 2019-10-02 23:59 | disposition home or self-care (01) | LOC: WOUND 10:36 | PROVIDERS: ATTEND Podiatrist Foot & Ankle Surgery | DX: E11.621 Type 2 diabetes mellitus with foot ulcer (principal); L97.512 Non-pressure chronic ulcer of other part of right foot with fat layer exposed; L84 Corns and callosities; M20.11 Hallux valgus (acquired), right foot; E11.610 Type 2 diabetes mellitus with diabetic neuropathic arthropathy; E11.42 Type 2 diabetes mellitus with diabetic polyneuropathy; I10 Essential (primary) hypertension; J44.9 Chronic obstructive pulmonary disease, unspecified; G47.30 Sleep apnea, unspecified; G89.29 Other chronic pain; K21.9 Gastro-esophageal reflux disease without esophagitis; Z79.4 Long term (current) use of insulin; Z90.49 Acquired absence of other specified parts of digestive tract; Z90.710 Acquired absence of both cervix and uterus; Z98.1 Arthrodesis status; Z86.14 Personal history of Methicillin resistant Staphylococcus aureus infection; Z79.82 Long term (current) use of aspirin | CPT/HCPCS: 11042 ==

== ENCOUNTER → 2019-10-09 | Outpatient (CLI) | payer OTHER | END | disposition home or self-care (01) | LOC: WOUND 10:00 | PROVIDERS: ATTEND Podiatrist Foot & Ankle Surgery | DX: E11.621 Type 2 diabetes mellitus with foot ulcer (principal); L97.512 Non-pressure chronic ulcer of other part of right foot with fat layer exposed; L84 Corns and callosities; E11.610 Type 2 diabetes mellitus with diabetic neuropathic arthropathy; E11.42 Type 2 diabetes mellitus with diabetic polyneuropathy; I10 Essential (primary) hypertension; J44.9 Chronic obstructive pulmonary disease, unspecified; G47.30 Sleep apnea, unspecified; G89.29 Other chronic pain; K21.9 Gastro-esophageal reflux disease without esophagitis; M20.11 Hallux valgus (acquired), right foot; Z90.49 Acquired absence of other specified parts of digestive tract; Z90.710 Acquired absence of both cervix and uterus; Z86.14 Personal history of Methicillin resistant Staphylococcus aureus infection; Z79.4 Long term (current) use of insulin; Z79.82 Long term (current) use of aspirin; Z98.1 Arthrodesis status | CPT/HCPCS: 11042 ==

== ENCOUNTER → 2019-10-16 | Outpatient (CLI) | payer OTHER | END | disposition home or self-care (01) | LOC: WOUND 10:16 | PROVIDERS: ATTEND Podiatrist Foot & Ankle Surgery | DX: E11.621 Type 2 diabetes mellitus with foot ulcer (principal); L97.512 Non-pressure chronic ulcer of other part of right foot with fat layer exposed; E11.610 Type 2 diabetes mellitus with diabetic neuropathic arthropathy; E11.42 Type 2 diabetes mellitus with diabetic polyneuropathy; I10 Essential (primary) hypertension; L84 Corns and callosities; J44.9 Chronic obstructive pulmonary disease, unspecified; G47.30 Sleep apnea, unspecified; G89.29 Other chronic pain; K21.9 Gastro-esophageal reflux disease without esophagitis; M20.11 Hallux valgus (acquired), right foot; Z90.49 Acquired absence of other specified parts of digestive tract; Z90.710 Acquired absence of both cervix and uterus; Z86.14 Personal history of Methicillin resistant Staphylococcus aureus infection; Z79.4 Long term (current) use of insulin; Z79.82 Long term (current) use of aspirin; Z98.1 Arthrodesis status | CPT/HCPCS: 11042 ==

== ENCOUNTER → 2019-10-23 | Outpatient (CLI) | payer OTHER | END | disposition home or self-care (01) | LOC: WOUND 10:21 | PROVIDERS: ATTEND Podiatrist Foot & Ankle Surgery | DX: E11.621 Type 2 diabetes mellitus with foot ulcer (principal); L97.512 Non-pressure chronic ulcer of other part of right foot with fat layer exposed; E11.610 Type 2 diabetes mellitus with diabetic neuropathic arthropathy; E11.42 Type 2 diabetes mellitus with diabetic polyneuropathy; I10 Essential (primary) hypertension; L84 Corns and callosities; J44.9 Chronic obstructive pulmonary disease, unspecified; G47.30 Sleep apnea, unspecified; G89.29 Other chronic pain; K21.9 Gastro-esophageal reflux disease without esophagitis; M20.11 Hallux valgus (acquired), right foot; Z90.49 Acquired absence of other specified parts of digestive tract; Z90.710 Acquired absence of both cervix and uterus; Z86.14 Personal history of Methicillin resistant Staphylococcus aureus infection; Z79.4 Long term (current) use of insulin; Z79.82 Long term (current) use of aspirin; Z98.1 Arthrodesis status | CPT/HCPCS: 97597 ==

== ENCOUNTER → 2019-10-30 | Outpatient (CLI) | payer OTHER | END | disposition home or self-care (01) | LOC: WOUND 10:31 | PROVIDERS: ATTEND Podiatrist Foot & Ankle Surgery | DX: E11.621 Type 2 diabetes mellitus with foot ulcer (principal); L97.512 Non-pressure chronic ulcer of other part of right foot with fat layer exposed; E11.610 Type 2 diabetes mellitus with diabetic neuropathic arthropathy; E11.42 Type 2 diabetes mellitus with diabetic polyneuropathy; I10 Essential (primary) hypertension; L84 Corns and callosities; J44.9 Chronic obstructive pulmonary disease, unspecified; G47.30 Sleep apnea, unspecified; G89.29 Other chronic pain; K21.9 Gastro-esophageal reflux disease without esophagitis; M20.11 Hallux valgus (acquired), right foot; Z90.49 Acquired absence of other specified parts of digestive tract; Z90.710 Acquired absence of both cervix and uterus; Z86.14 Personal history of Methicillin resistant Staphylococcus aureus infection; Z79.4 Long term (current) use of insulin; Z79.82 Long term (current) use of aspirin; Z98.1 Arthrodesis status | CPT/HCPCS: 97597 ==

== ENCOUNTER → 2019-11-06 | Outpatient (CLI) | payer OTHER | END | disposition home or self-care (01) | LOC: WOUND 10:27 | PROVIDERS: ATTEND Podiatrist Foot & Ankle Surgery | DX: E11.621 Type 2 diabetes mellitus with foot ulcer (principal); L97.512 Non-pressure chronic ulcer of other part of right foot with fat layer exposed; E11.610 Type 2 diabetes mellitus with diabetic neuropathic arthropathy; E11.42 Type 2 diabetes mellitus with diabetic polyneuropathy; I10 Essential (primary) hypertension; L84 Corns and callosities; J44.9 Chronic obstructive pulmonary disease, unspecified; G47.30 Sleep apnea, unspecified; G89.29 Other chronic pain; K21.9 Gastro-esophageal reflux disease without esophagitis; M20.11 Hallux valgus (acquired), right foot; Z90.49 Acquired absence of other specified parts of digestive tract; Z90.710 Acquired absence of both cervix and uterus; Z86.14 Personal history of Methicillin resistant Staphylococcus aureus infection; Z79.4 Long term (current) use of insulin; Z79.82 Long term (current) use of aspirin; Z98.1 Arthrodesis status | CPT/HCPCS: 97597 ==

== ENCOUNTER → 2019-11-13 | Outpatient (CLI) | payer OTHER | END | disposition home or self-care (01) | LOC: WOUND 08:36 | PROVIDERS: ATTEND Podiatrist Foot & Ankle Surgery | DX: E11.621 Type 2 diabetes mellitus with foot ulcer (principal); L97.512 Non-pressure chronic ulcer of other part of right foot with fat layer exposed; E11.610 Type 2 diabetes mellitus with diabetic neuropathic arthropathy; E11.42 Type 2 diabetes mellitus with diabetic polyneuropathy; I10 Essential (primary) hypertension; L84 Corns and callosities; J44.9 Chronic obstructive pulmonary disease, unspecified; G47.30 Sleep apnea, unspecified; G89.29 Other chronic pain; K21.9 Gastro-esophageal reflux disease without esophagitis; M20.11 Hallux valgus (acquired), right foot; Z90.49 Acquired absence of other specified parts of digestive tract; Z90.710 Acquired absence of both cervix and uterus; Z86.14 Personal history of Methicillin resistant Staphylococcus aureus infection; Z79.4 Long term (current) use of insulin; Z79.82 Long term (current) use of aspirin; Z98.1 Arthrodesis status | CPT/HCPCS: 97597 ==

== ENCOUNTER → 2019-11-20 | Outpatient (CLI) | payer OTHER | END | disposition home or self-care (01) | LOC: WOUND 10:34 | PROVIDERS: ATTEND Podiatrist Foot & Ankle Surgery | DX: E11.621 Type 2 diabetes mellitus with foot ulcer (principal); L97.512 Non-pressure chronic ulcer of other part of right foot with fat layer exposed; E11.610 Type 2 diabetes mellitus with diabetic neuropathic arthropathy; E11.42 Type 2 diabetes mellitus with diabetic polyneuropathy; I10 Essential (primary) hypertension; L84 Corns and callosities; J44.9 Chronic obstructive pulmonary disease, unspecified; G47.30 Sleep apnea, unspecified; G89.29 Other chronic pain; K21.9 Gastro-esophageal reflux disease without esophagitis; M20.11 Hallux valgus (acquired), right foot; Z90.49 Acquired absence of other specified parts of digestive tract; Z90.710 Acquired absence of both cervix and uterus; Z86.14 Personal history of Methicillin resistant Staphylococcus aureus infection; Z79.4 Long term (current) use of insulin; Z79.82 Long term (current) use of aspirin; Z98.1 Arthrodesis status | CPT/HCPCS: 97597 ==

== ENCOUNTER 2019-11-27 10:33 | Outpatient (CLI) | payer OTHER | END 2019-11-27 23:59 | disposition home or self-care (01) | LOC: WOUND 10:33 | PROVIDERS: ATTEND Podiatrist Foot & Ankle Surgery | DX: E11.621 Type 2 diabetes mellitus with foot ulcer (principal); L97.512 Non-pressure chronic ulcer of other part of right foot with fat layer exposed; E11.610 Type 2 diabetes mellitus with diabetic neuropathic arthropathy; E11.42 Type 2 diabetes mellitus with diabetic polyneuropathy; I10 Essential (primary) hypertension; L84 Corns and callosities; J44.9 Chronic obstructive pulmonary disease, unspecified; G47.30 Sleep apnea, unspecified; G89.29 Other chronic pain; K21.9 Gastro-esophageal reflux disease without esophagitis; M20.11 Hallux valgus (acquired), right foot; Z90.49 Acquired absence of other specified parts of digestive tract; Z90.710 Acquired absence of both cervix and uterus; Z86.14 Personal history of Methicillin resistant Staphylococcus aureus infection; Z79.4 Long term (current) use of insulin; Z79.82 Long term (current) use of aspirin; Z98.1 Arthrodesis status | CPT/HCPCS: 97597 ==

== ENCOUNTER → 2019-12-04 | Outpatient (CLI) | payer OTHER | END | disposition home or self-care (01) | LOC: WOUND 08:50 | PROVIDERS: ATTEND Podiatrist Foot & Ankle Surgery | DX: E11.621 Type 2 diabetes mellitus with foot ulcer (principal); L97.512 Non-pressure chronic ulcer of other part of right foot with fat layer exposed; E11.610 Type 2 diabetes mellitus with diabetic neuropathic arthropathy; E11.42 Type 2 diabetes mellitus with diabetic polyneuropathy; I10 Essential (primary) hypertension; L84 Corns and callosities; J44.9 Chronic obstructive pulmonary disease, unspecified; G47.30 Sleep apnea, unspecified; G89.29 Other chronic pain; K21.9 Gastro-esophageal reflux disease without esophagitis; M20.11 Hallux valgus (acquired), right foot; Z90.49 Acquired absence of other specified parts of digestive tract; Z90.710 Acquired absence of both cervix and uterus; Z86.14 Personal history of Methicillin resistant Staphylococcus aureus infection; Z79.4 Long term (current) use of insulin; Z79.82 Long term (current) use of aspirin; Z98.1 Arthrodesis status | CPT/HCPCS: 97597 ==

== ENCOUNTER → 2019-12-11 | Outpatient (CLI) | payer OTHER | END | disposition home or self-care (01) | LOC: WOUND 09:03 | PROVIDERS: ATTEND Podiatrist Foot & Ankle Surgery | DX: E11.621 Type 2 diabetes mellitus with foot ulcer (principal); L97.512 Non-pressure chronic ulcer of other part of right foot with fat layer exposed; E11.610 Type 2 diabetes mellitus with diabetic neuropathic arthropathy; E11.42 Type 2 diabetes mellitus with diabetic polyneuropathy; I10 Essential (primary) hypertension; L84 Corns and callosities; J44.9 Chronic obstructive pulmonary disease, unspecified; G47.30 Sleep apnea, unspecified; G89.29 Other chronic pain; K21.9 Gastro-esophageal reflux disease without esophagitis; M20.11 Hallux valgus (acquired), right foot; Z90.49 Acquired absence of other specified parts of digestive tract; Z90.710 Acquired absence of both cervix and uterus; Z86.14 Personal history of Methicillin resistant Staphylococcus aureus infection; Z79.4 Long term (current) use of insulin; Z79.82 Long term (current) use of aspirin; Z98.1 Arthrodesis status | CPT/HCPCS: 97597 ==

== ENCOUNTER 2019-12-18 10:03 | Outpatient (CLI) | payer OTHER | END 2019-12-18 23:59 | disposition home or self-care (01) | LOC: WOUND 10:03 | PROVIDERS: ATTEND Podiatrist Foot & Ankle Surgery | DX: E11.621 Type 2 diabetes mellitus with foot ulcer (principal); L97.518 Non-pressure chronic ulcer of other part of right foot with other specified severity; E11.610 Type 2 diabetes mellitus with diabetic neuropathic arthropathy; E11.42 Type 2 diabetes mellitus with diabetic polyneuropathy; I10 Essential (primary) hypertension; L84 Corns and callosities; J44.9 Chronic obstructive pulmonary disease, unspecified; G47.30 Sleep apnea, unspecified; G89.29 Other chronic pain; K21.9 Gastro-esophageal reflux disease without esophagitis; M20.11 Hallux valgus (acquired), right foot; Z90.49 Acquired absence of other specified parts of digestive tract; Z90.710 Acquired absence of both cervix and uterus; Z86.14 Personal history of Methicillin resistant Staphylococcus aureus infection; Z79.4 Long term (current) use of insulin; Z79.82 Long term (current) use of aspirin; Z98.1 Arthrodesis status | CPT/HCPCS: 99213 ==

== ENCOUNTER → 2020-01-01 | Outpatient (CLI) | payer OTHER | END | disposition home or self-care (01) | LOC: WOUND 10:01 | PROVIDERS: ATTEND Podiatrist Foot & Ankle Surgery | DX: E11.621 Type 2 diabetes mellitus with foot ulcer (principal); L97.512 Non-pressure chronic ulcer of other part of right foot with fat layer exposed; E11.610 Type 2 diabetes mellitus with diabetic neuropathic arthropathy; E11.42 Type 2 diabetes mellitus with diabetic polyneuropathy; I10 Essential (primary) hypertension; L84 Corns and callosities; J44.9 Chronic obstructive pulmonary disease, unspecified; G47.30 Sleep apnea, unspecified; G89.29 Other chronic pain; K21.9 Gastro-esophageal reflux disease without esophagitis; M20.11 Hallux valgus (acquired), right foot; Z90.49 Acquired absence of other specified parts of digestive tract; Z90.710 Acquired absence of both cervix and uterus; Z86.14 Personal history of Methicillin resistant Staphylococcus aureus infection; Z79.4 Long term (current) use of insulin; Z79.82 Long term (current) use of aspirin; Z98.1 Arthrodesis status | CPT/HCPCS: 97597 ==

== ENCOUNTER → 2020-01-08 | Outpatient (CLI) | payer OTHER | END | disposition home or self-care (01) | LOC: WOUND 09:01 | PROVIDERS: ATTEND Podiatrist Foot & Ankle Surgery | DX: E11.621 Type 2 diabetes mellitus with foot ulcer (principal); L97.511 Non-pressure chronic ulcer of other part of right foot limited to breakdown of skin; L97.522 Non-pressure chronic ulcer of other part of left foot with fat layer exposed; E11.610 Type 2 diabetes mellitus with diabetic neuropathic arthropathy; E11.42 Type 2 diabetes mellitus with diabetic polyneuropathy; I10 Essential (primary) hypertension; J44.9 Chronic obstructive pulmonary disease, unspecified; G47.30 Sleep apnea, unspecified; L84 Corns and callosities; G89.29 Other chronic pain; K21.9 Gastro-esophageal reflux disease without esophagitis; M20.11 Hallux valgus (acquired), right foot; Z90.49 Acquired absence of other specified parts of digestive tract; Z90.710 Acquired absence of both cervix and uterus; Z86.14 Personal history of Methicillin resistant Staphylococcus aureus infection; Z79.4 Long term (current) use of insulin; Z79.82 Long term (current) use of aspirin; Z98.1 Arthrodesis status | CPT/HCPCS: 11042; 97597 ==

== ENCOUNTER 2020-01-21 09:03 | Inpatient (IN) | payer OTHER ==
[~2020-01-21] VITALS: Ht 167.6 cm; Wt 85.4 kg
--- NOTE | 2020-01-21 09:44 | NUR ---
first contact with pt, assume care at this time
[2020-01-21] MEDS ORDERED: SODIUM CHLORIDE FLUSH 10ML SYR IVF ONE (10:00)
[2020-01-21] MEDS ORDERED: CEFTRIAXONE PMX 1GM/50ML 50 ML IVPB ONE (10:00)
[2020-01-21 10:25] LABS: MEAN CORPUSCULAR HGB CONC 32.2 g/dL (32.4-35.8); MEAN PLATELET VOLUME 8.5 fL (7.4-10.4); PLATELET COUNT 288 x10^3/uL (130-400); RED BLOOD COUNT 5.74 x10^6/uL (3.82-5.3); RED CELL DISTRIBUTION WIDTH 15.1 % (9.6-15.2)
[2020-01-21 10:30] LABS: ALANINE AMINOTRANSFERASE 13 U/L (12-78); ALBUMIN 2.7 g/dL (3.4-5.0); ANION GAP 17 mmol/L (5-15); CALCIUM 8.8 mg/dL (8.5-10.1); CHLORIDE 83 mmol/L (98-107); CREATININE 0.95 mg/dL (0.55-1.02)
[2020-01-21] MEDS ORDERED: ONDANSETRON 2MG/ML, 2ML IVPush ONE ×2 (10:30→14:00)
[2020-01-21 10:34] LABS: ALKALINE PHOSPHATASE 131 U/L (45-117); BILIRUBIN,TOTAL 0.8 mg/dL (0.2-1.0); TOTAL PROTEIN 8.5 g/dL (6.4-8.2); TROPONIN I < 0.015 ng/mL (0.000-0.045)
[2020-01-21] MEDS ORDERED: ONDANSETRON 2MG/ML, 2ML ONE ×2 (10:34→13:50)
--- NOTE | 2020-01-21 10:36 | NUR ---
XRAY IN ROOM
--- NOTE | 2020-01-21 10:36 | NUR ---
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 WENT OVER PLAN OF CARE FROM ORDER LIST, AGREES TO PLAN. PT GIVEN ZOFRAN FOR NAUSEA, FELLING BETTER AT THIS TIME.
[2020-01-21 11:24] LABS: MD YES
[2020-01-21 11:26] LABS: LYMPH#(MANUAL) 2.11 x10^3/uL (1-3.4); LYMPHS% (MANUAL) 8 % (22-44); MONOS#(MANUAL) 0.53 x10^3/uL (0.3-2.7); MONOS% (MANUAL) 2 % (2-9)
[2020-01-21 11:27] LABS: <PLATELET ESTIMATE> ADEQUATE; <PLT MORPHOLOGY> NORMAL PLT MORPH; <RBC MORPHOLOGY> NORMAL; BAND#(MANUAL) 1.85 x10^3/uL; BANDS%(MANUAL) 7 % (0-7); SEGS% (MANUAL) 83 % (42-75)
[2020-01-21] MEDS ORDERED: POTASSIUM CHLORIDE 40 MEQ in SODIUM CHLORIDE 0.9% 1,000 ML IV ONE (11:36)
[2020-01-21] MEDS ORDERED: POTASSIUM CHLORIDE 20 MEQ TAB.ER.PRT PO ONE (12:00)
[2020-01-21] MEDS ORDERED: POTASSIUM CHLORIDE 20 MEQ TAB.ER.PRT ONE (12:02)
[2020-01-21] MEDS ORDERED: NS + 40MEQ KCL 1,000 ML IV ONE (12:02)
[2020-01-21] MEDS ORDERED: OMNIPAQUE 350 MG/ML, 75ML BOTTLE ONE (13:09)
--- NOTE | 2020-01-21 14:15 | NUR ---
PT CALM USED BEDSIDE COMMODE. LAB IN ROOM FOR DRAW
--- NOTE | 2020-01-21 15:26 | NUR ---
PATIENT GIVEN WATER PER REQUEST, NAD
[2020-01-21] MEDS ORDERED: SODIUM CHLORIDE FLUSH 10ML SYR IVF PRN (15:30)
[2020-01-21] MEDS ORDERED: NS + 20MEQ KCL 1,000 ML IV SCH (16:37)
[2020-01-21] MEDS ORDERED: hydrALAzine 20 MG/ML, 1ML IVPush PRN (17:00)
[2020-01-21] MEDS ORDERED: CALCIUM CARBONATE 500 MG TAB.CHEW PO PRN (17:00)
[2020-01-21] MEDS ORDERED: ENOXAPARIN 40 MG/0.4 ML SQ SCH (17:00)
[2020-01-21] MEDS ORDERED: GABAPENTIN 300 MG CAPSULE PO SCH (17:00)
[2020-01-21] MEDS ORDERED: ACETAMINOPHEN 325 MG TABLET PO PRN (17:00)
[2020-01-21] MEDS ORDERED: VANCOMYCIN PER PHARMACY MC PRN (17:00)
[2020-01-21] MEDS ORDERED: MELATONIN 5 MG TABLET PO PRN (17:00)
[2020-01-21] MEDS ORDERED: NS + 20MEQ KCL 1,000 ML IV ONE (17:16)
[2020-01-21] MEDS ORDERED: GABAPENTIN 400 MG CAPSULE ONE (17:16)
[2020-01-21] MEDS ORDERED: ENOXAPARIN 40 MG/0.4 ML ONE (17:16)
[2020-01-21] MEDS: AMPICILLIN/SULBACTAM 3 GM in SODIUM CHLORIDE 0.9% 100 ML IV SCH (17:25)
[2020-01-21] MEDS ORDERED: PLEASE ENTER WEIGHT MC SCH (17:30)
[2020-01-21] MEDS: METOCLOPRAMIDE 5 MG/ML, 2ML IVPush PRN (19:42)
[2020-01-21] MEDS: GABAPENTIN 400 MG CAPSULE PO SCH (19:42)
[2020-01-21] MEDS ORDERED: PHARMACOKINETIC MONITORING MC PRN (20:00)
[2020-01-21 20:07] VITALS: BP 173/82
[2020-01-21] MEDS: SUCRALFATE 1 GM/10 ML UDC PO SCH (20:18)
[2020-01-21] MEDS: INSULIN LISPRO 100 UNITS/ML, PEN SQ-INSULIN SCH (20:19)
[2020-01-21 20:42] LABS: ANION GAP 21 mmol/L (5-15); CALCIUM 8.5 mg/dL (8.5-10.1); CHLORIDE 90 mmol/L (98-107); CREATININE 0.92 mg/dL (0.55-1.02)
[2020-01-21] MEDS ORDERED: TIZANIDINE 4MG TABLET PO SCH (21:00)
[2020-01-21] MEDS ORDERED: HYDROXYZINE PAMOATE 50MG CAP PO SCH (21:00)
[2020-01-21] MEDS ORDERED: INSULIN GLARGINE 100 UNITS/ML, PEN SQ-INSULIN SCH (21:00)
[2020-01-21] MEDS ORDERED: VANCOMYCIN 2,000 MG in SODIUM CHLORIDE 0.9% 500 ML IV ONE (22:00)
[2020-01-21] MEDS ORDERED: ZOLPIDEM 5MG TABLET PO PRN (22:30)
[2020-01-22] MEDS: AMPICILLIN/SULBACTAM 3 GM in SODIUM CHLORIDE 0.9% 100 ML IV SCH ×3 (00:25→12:52)
[2020-01-22 00:28] VITALS: BP 99/67
[2020-01-22] MEDS: GABAPENTIN 400 MG CAPSULE PO SCH ×3 (00:34→12:12)
[2020-01-22] MEDS: morphine SULFATE 15 MG TAB.IR PO PRN ×2 (02:31→05:30)
[2020-01-22] MEDS: METOCLOPRAMIDE 5 MG/ML, 2ML IVPush PRN ×2 (05:31→10:31)
[2020-01-22] MEDS: INSULIN LISPRO 100 UNITS/ML, PEN SQ-INSULIN SCH (07:00)
[2020-01-22 07:16] LABS: ANION GAP 17 mmol/L (5-15); CALCIUM 8.3 mg/dL (8.5-10.1); CHLORIDE 91 mmol/L (98-107); CREATININE 1.36 mg/dL (0.55-1.02)
[2020-01-22 07:18] LABS: TROPONIN I < 0.015 ng/mL (0.000-0.045)
[2020-01-22 07:31] LABS: MD YES; MEAN CORPUSCULAR HEMOGLOBIN 26.2 pg (27.0-34.8); MEAN CORPUSCULAR HGB CONC 31.8 g/dL (32.4-35.8); MEAN CORPUSCULAR VOLUME 82.4 fL (80-100); MEAN PLATELET VOLUME 9.6 fL (7.4-10.4); PLATELET COUNT 397 x10^3/uL (130-400); RED BLOOD COUNT 6.72 x10^6/uL (3.82-5.3); RED CELL DISTRIBUTION WIDTH 15.5 % (9.6-15.2)
[2020-01-22 07:32] LABS: BAND#(MANUAL) 4.12 x10^3/uL; BANDS%(MANUAL) 13 % (0-7); LYMPHS% (MANUAL) 6 % (22-44); MONOS#(MANUAL) 0.63 x10^3/uL (0.3-2.7); MONOS% (MANUAL) 2 % (2-9); SEG#(MANUAL) 25.04 x10^3/uL (1.8-6.8); SEGS% (MANUAL) 79 % (42-75)
[2020-01-22 07:33] VITALS: BP 93/69
[2020-01-22 07:33] LABS: <PLATELET ESTIMATE> ADEQUATE; <PLT MORPHOLOGY> NORMAL PLT MORPH; <RBC MORPHOLOGY> NORMAL
[2020-01-22] MEDS ORDERED: ETOMIDATE 20 MG/10 ML ONE (08:00)
[2020-01-22] MEDS ORDERED: EPINEPHRINE SYRINGE 0.1 MG/ML, 10ML ONE (08:00)
[2020-01-22] MEDS ORDERED: SODIUM BICARB 7.5%, 50ML SYRINGE ONE (08:00)
[2020-01-22] MEDS ORDERED: MIDAZOLAM 1 MG/ML, 5ML ONE (08:00)
[2020-01-22] MEDS: SUCRALFATE 1 GM/10 ML UDC PO SCH ×3 (08:47→15:24)
[2020-01-22] MEDS ORDERED: INSULIN LISPRO 100 UNIT/ML, 3ML VIAL SQ-INSULIN ONE (09:00)
[2020-01-22 09:06] VITALS: BP 70/52
[2020-01-22] MEDS ORDERED: D5%-0.45NACL+KCL 20MEQ 1,000 ML IV SCH ×2 (09:12→10:42)
[2020-01-22 09:30] VITALS: BP 101/52
[2020-01-22] MEDS ORDERED: LACTATED RINGERS 1,000 ML IVBOLUS ONE (09:30)
[2020-01-22] MEDS ORDERED: POTASSIUM CHLORIDE 20 MEQ TAB.ER.PRT PO ONE (09:30)
[2020-01-22] MEDS ORDERED: DAPTOMYCIN 500 MG in SODIUM CHLORIDE 0.9% 100 ML IV SCH (10:00)
[2020-01-22] MEDS ORDERED: SODIUM CHLORIDE 0.9% 1,000ML IVBOLUS ONE (10:30)
[2020-01-22] MEDS ORDERED: REGULAR INSULIN 100 UNITS in SODIUM CHLORIDE 0.9% 99 ML IV PRN (10:42)
[2020-01-22] MEDS ORDERED: SODIUM CHLORIDE 0.9% 1,000 ML IV SCH (10:42)
[2020-01-22 11:03] LABS: TROPONIN I < 0.015 ng/mL (0.000-0.045)
[2020-01-22 11:35] LABS: ANION GAP 17 mmol/L (5-15); CALCIUM 7.9 mg/dL (8.5-10.1); CHLORIDE 95 mmol/L (98-107); CREATININE 1.62 mg/dL (0.55-1.02)
[2020-01-22] MEDS ORDERED: NOREPINEPHRINE 8 MG in SODIUM CHLORIDE 0.9% 242 ML IV PRN (12:00)
[2020-01-22 12:01] LABS: MICROSCOPIC INDICATED
[2020-01-22] MEDS: SODIUM CHLORIDE 0.9% 1,000 ML IV SCH ×2 (12:09→14:12)
[2020-01-22 12:27] LABS: ACETONE, SERUM Small (20mg/dL) (Negative)
[2020-01-22] MEDS ORDERED: POTASSIUM CHLORIDE PMX 100 ML IV ONE (12:30)
[2020-01-22] MEDS ORDERED: ACETAMINOPHEN 650 MG SUPP ONE (12:39)
[2020-01-22] MEDS ORDERED: SODIUM BICARBONATE 8.4% 100 MEQ in SODIUM CHLORIDE 0.45% 1,000 ML IV SCH (13:00)
[2020-01-22] MEDS ORDERED: CALCIUM CHLORIDE 13.6 MEQ in SODIUM CHLORIDE 0.9% 100 ML IV ONE (13:00)
[2020-01-22] MEDS ORDERED: ACETAMINOPHEN 650 MG SUPP PR PRN (13:00)
[2020-01-22] MEDS ORDERED: MIDAZOLAM HCL 50 MG in SODIUM CHLORIDE 0.9% 40 ML IV PRN (14:16)
[2020-01-22] MEDS ORDERED: FENTANYL PF 100 MCG/2ML IVPush PRN (14:30)
[2020-01-22] MEDS ORDERED: PHARMACY MAY ADJ FOR RENAL FX MC SCH (14:30)
[2020-01-22] MEDS ORDERED: LIDOCAINE-MPF 1%, 2ML ENDO PRN (14:30)
[2020-01-22] MEDS ORDERED: SODIUM BICARB 8.4%, 50ML SYRINGE ONE (14:44)
[2020-01-22] MEDS ORDERED: SODIUM BICARBONATE 1 MEQ/ML, 50ML VIAL IVPush ONE ×2 (15:30)
[2020-01-22] MEDS ORDERED: PANTOPRAZOLE 40 MG IV IV SCH (16:00)
[2020-01-22] MEDS ORDERED: VANCOMYCIN 1,600 MG in SODIUM CHLORIDE 0.9% 250 ML IV SCH (16:00)
[2020-01-22 16:15] LABS: MEAN CORPUSCULAR HEMOGLOBIN 26.3 pg (27.0-34.8); MEAN CORPUSCULAR HGB CONC 32.5 g/dL (32.4-35.8); MEAN CORPUSCULAR VOLUME 80.9 fL (80-100); MEAN PLATELET VOLUME 9.5 fL (7.4-10.4); PLATELET COUNT 368 x10^3/uL (130-400); RED BLOOD COUNT 6.62 x10^6/uL (3.82-5.3); RED CELL DISTRIBUTION WIDTH 15.4 % (9.6-15.2)
[2020-01-22 16:28] LABS: ANION GAP 14 mmol/L (5-15); CALCIUM 7.8 mg/dL (8.5-10.1); CHLORIDE 100 mmol/L (98-107)
[2020-01-22 16:32] LABS: CREATINE KINASE, TOTAL 91 U/L (26-192); CREATININE 1.85 mg/dL (0.55-1.02)
[2020-01-22 16:34] LABS: MD YES
[2020-01-22 16:36] LABS: BANDS%(MANUAL) 24 % (0-7); LYMPH#(MANUAL) 3.34 x10^3/uL (1-3.4); LYMPHS% (MANUAL) 11 % (22-44); MONOS% (MANUAL) 1 % (2-9); REACTIVE LYMPHS % (MANUAL) 1 % (0-0); SEG#(MANUAL) 19.15 x10^3/uL (1.8-6.8); SEGS% (MANUAL) 63 % (42-75)
[2020-01-22 16:37] LABS: <PLATELET ESTIMATE> ADEQUATE; <PLT MORPHOLOGY> NORMAL PLT MORPH; <RBC MORPHOLOGY> NORMAL
[2020-01-22] MEDS ORDERED: CALCIUM CHLORIDE 13.6 MEQ/10 ML ONE (19:09)
[2020-01-22] MEDS ORDERED: AMIODARONE 50 MG/ML, 3ML ONE (19:09)
[2020-01-22] MEDS ORDERED: INSULIN GLARGINE 100 UNITS/ML, PEN SQ-INSULIN SCH (21:00)
[2020-01-23] MEDS ORDERED: PANTOPRAZOLE 40 MG IV IV SCH (09:00)
== END 2020-01-22 22:22 | disposition expired | DRG 871 ==
LOC: ED 11:17 → EDIP 15:10 → 3N 19:14 → CCU 01-22 10:10
PROVIDERS: ADMIT Internal Medicine; ATTEND Hospitalist
PROC: 0T9B70Z Drainage of Bladder with Drainage Device, Via Natural or Artificial Opening (ICD-10-PCS; principal; 2020-01-22)
PROC: 5A12012 Performance of Cardiac Output, Single, Manual (ICD-10-PCS; 2020-01-22)
PROC: 5A1935Z Respiratory Ventilation, Less than 24 Consecutive Hours (ICD-10-PCS; 2020-01-22)
PROC: 0BH17EZ Insertion of Endotracheal Airway into Trachea, Via Natural or Artificial Opening (ICD-10-PCS; 2020-01-22)
DX: A41.89 Other specified sepsis (principal); E11.10 Type 2 diabetes mellitus with ketoacidosis without coma; G93.41 Metabolic encephalopathy; R65.21 Severe sepsis with septic shock; N17.0 Acute kidney failure with tubular necrosis; K85.90 Acute pancreatitis without necrosis or infection, unspecified; J96.01 Acute respiratory failure with hypoxia; E87.1 Hypo-osmolality and hyponatremia; F11.20 Opioid dependence, uncomplicated; L03.116 Cellulitis of left lower limb; I46.9 Cardiac arrest, cause unspecified; I49.01 Ventricular fibrillation; B96.89 Other specified bacterial agents as the cause of diseases classified elsewhere; D72.823 Leukemoid reaction; E11.42 Type 2 diabetes mellitus with diabetic polyneuropathy; E11.621 Type 2 diabetes mellitus with foot ulcer; E87.6 Hypokalemia; F41.1 Generalized anxiety disorder; G47.33 Obstructive sleep apnea (adult) (pediatric); G89.4 Chronic pain syndrome; L97.509 Non-pressure chronic ulcer of other part of unspecified foot with unspecified severity; K27.9 Peptic ulcer, site unspecified, unspecified as acute or chronic, without hemorrhage or perforation; K21.9 Gastro-esophageal reflux disease without esophagitis; J44.9 Chronic obstructive pulmonary disease, unspecified; I10 Essential (primary) hypertension; Z90.710 Acquired absence of both cervix and uterus; Z87.11 Personal history of peptic ulcer disease; Z86.14 Personal history of Methicillin resistant Staphylococcus aureus infection; Z82.49 Family history of ischemic heart disease and other diseases of the circulatory system; Z79.4 Long term (current) use of insulin
CPT/HCPCS: 36415; 36600; 71045; 71275; 74018; 76700; 80048; 80053; 81001; 82010; 82533; 82550; 82803; 82962; 83036; 83605; 83690; 83735; 83880; 84100; 84443; 84478; 84484; 85025; 85379; 87040; 87077; 87081; 87086; 87147; 87186; 92950; 93005; 93306; 93922; 93926; 94002; G0378; J0295; J0696; J0878; J1650; J2250; J2405; J3370; J3480; Q9967; C9113; J0282; J0360; J1815; J2765; J7030; J7040; J7050; J7120